=== PATIENT | male | born 1960 | race Caucasian/White ===

== ENCOUNTER 2017-08-21 06:56 | Inpatient (IN) | payer OTHER ==
[2017-08-21 09:33] LABS: ADD MAN DIFF? NO
[2017-08-21 09:37] LABS: BASOPHIL # 0.1 10^3/ul (0.0-0.1); BASOPHILS % 0.7 % (0.0-2.0); EOSINOPHILS # 0.3 10^3/ul (0.0-0.5); HEMATOCRIT 33.6 % (42.0-52.0); HEMOGLOBIN 11.1 g/dl (14.0-18.0); LYMPHOCYTES # 1.4 10^3/ul (0.8-2.9); LYMPHOCYTES % 15.5 % (15.0-51.0); MEAN CORPUSCULAR HEMOGLOBIN 26.1 pg (29.0-33.0); MEAN CORPUSCULAR VOLUME 79.1 fl (82.0-101.0); MEAN PLATELET VOLUME 11.2 fl (7.4-10.4); MONOCYTE # 0.6 10^3/ul (0.3-0.9); MONOCYTES % 6.3 % (0.0-11.0); NEUTROPHIL # 6.9 10^3/ul (1.6-7.5); NEUTROPHILS % 74.3 % (39.0-77.0); PLATELET COUNT 452 10^3/UL (140-415); RED BLOOD COUNT 4.25 10^6/ul (4.70-6.10); RED CELL DISTRIBUTION WIDTH 14.2 % (11.5-14.5)
[2017-08-21 09:37] LABS: WHITE BLOOD COUNT 9.2 10^3/ul (4.8-10.8)
[2017-08-21 10:07] LABS: ALANINE AMINOTRANSFERASE 31 IU/L (13-69); ALKALINE PHOSPHATASE 102 IU/L (42-121); ANION GAP 10 (8-16); ASPARTATE AMINO TRANSFERASE 16 IU/L (15-46); BILIRUBIN,INDIRECT 0.1 mg/dl (0-1.1); BILIRUBIN,TOTAL 0.1 mg/dl (0.2-1.3); BLOOD UREA NITROGEN 20 mg/dl (7-20); CARBON DIOXIDE 29 mmol/L (21-31); CHLORIDE 108 mmol/L (97-110); CREATININE 3.57 mg/dl (0.61-1.24); GLUCOSE 201 mg/dl (70-220); POTASSIUM 3.6 mmol/L (3.5-5.1); SODIUM 143 mmol/L (135-144); TOTAL PROTEIN 6.3 g/dl (6.1-8.1)
[2017-08-21 10:16] LABS: INR 0.88; PT RATIO 0.9
[2017-08-21 10:17] LABS: PARTIAL THROMBOPLASTIN TIME 30.6 Sec (25.0-35.0)
[2017-08-21] MEDS: PANTOPRAZOLE IV 80 MG in SOD CHLORIDE 0.9% 100 ML IV (10:38)
[2017-08-21] MEDS: PANTOPRAZOLE IV 80 MG in SOD CHLORIDE 0.9% 100 ML IVPB (10:38)
[2017-08-21] MEDS ORDERED: ONDANSETRON 4 MG INJ IV ×2 (11:30→12:00)
[2017-08-21] MEDS ORDERED: ACETAMINOPHEN 325 MG TAB PO ×2 (11:30→12:00)
[2017-08-21] MEDS: HYPOGLYCEMIA PROTOCOL when Glucose is <70 mg/dL or symptomatic <90 mg/dL. XX (12:00)
[2017-08-21] MEDS ORDERED: morphine 2 MG INJ IV (12:00)
[2017-08-21] MEDS ORDERED: BISACODYL (EC) 5 MG TAB PO (12:00)
[2017-08-21] MEDS: Discontinue current oral sulfonylureas (glyburide, glipizide, and/or glimepiride) prior to XX (12:00)
[2017-08-21] MEDS ORDERED: NACL 0.9% 3 ML SYG IV (12:00)
[2017-08-21] MEDS ORDERED: HYDROCODONE/APAP (5/325) TAB PO (12:00)
[2017-08-21] MEDS ORDERED: GLUCAGON 1 MG INJ IM (13:00)
[2017-08-21] MEDS ORDERED: GLUCOSE GEL 15 GRAM TUBE PO ×2 (13:00→13:01)
[2017-08-21] MEDS ORDERED: GLUCOSE GEL 15 GRAM TUBE BUCCAL (13:00)
[2017-08-21] MEDS ORDERED: DEXTROSE 50% 50 ML SYRINGE IV ×2 (13:00)
[2017-08-21 13:25] LABS: HEMOGLOBIN A1C 7.8 % (0-5.9)
[2017-08-21] MEDS: INSULIN ASPART [NOVOLOG] 3 ML PEN SC ×3 (13:29→21:00)
[2017-08-21] MEDS: CEFTRIAXONE 1 GM/50 ML (PMX) 50 ML IVPB (13:57)
[2017-08-21] MEDS: SOD CHLORIDE 0.9% 1,000 ML IV ×2 (13:57→14:00)
[2017-08-21] MEDS: OCTREOTIDE 1 MG in DEXTROSE 5% 95 ML IV (18:06)
[2017-08-21 18:23] LABS: HEMATOCRIT 31.4 % (42.0-52.0); HEMOGLOBIN 10.4 g/dl (14.0-18.0)
[2017-08-21] MEDS: hydrALAzine 20 MG INJ IV (20:47)
[2017-08-21] MEDS: INSULIN GLARGINE [LANtus] 3 ML PEN SC (22:12)
[2017-08-22 01:03] LABS: ADD UMIC YES; UR ASCORBIC ACID NEGATIVE (NEGATIVE); UR BACTERIA FEW /HPF (NONE SEEN); UR BILIRUBIN (Dip) NEGATIVE (NEGATIVE); UR BLOOD (Dip) NEGATIVE (NEGATIVE); UR CLARITY CLEAR (CLEAR); UR COLOR YELLOW (YELLOW); UR GLUCOSE (Dip) 3+ mg/dL (NEGATIVE); UR KETONES (Dip) TRACE mg/dL (NEGATIVE); UR LEUKOCYTE ESTERASE (Dip) NEGATIVE Leu/ul (NEGATIVE); UR NITRITE (Dip) NEGATIVE (NEGATIVE); UR RBC 3 /HPF (0-5); UR SPECIFIC GRAVITY (Dip) 1.014 (1.003-1.030); UR TOTAL PROTEIN (Dip) 3+ mg/dl (NEGATIVE); UR UROBILINOGEN (Dip) NEGATIVE (NEGATIVE); UR WBC 12 /HPF (0-5)
[2017-08-22] MEDS: SOD CHLORIDE 0.9% 1,000 ML IV ×2 (01:32→07:50)
[2017-08-22] MEDS: PANTOPRAZOLE IV 80 MG in SOD CHLORIDE 0.9% 100 ML IV ×3 (01:33→17:15)
[2017-08-22] MEDS: LORAZEPAM 2 MG INJ IV (01:33)
[2017-08-22] MEDS ORDERED: hydrALAzine 20 MG INJ (01:44)
[2017-08-22] MEDS: ACCU-CHEK XX (01:55)
[2017-08-22 02:30] LABS: SODIUM,URINE RANDOM 108 mmol/L (30-90)
[2017-08-22 02:30] LABS: CREATININE,URINE RANDOM 90.63 mg/dl (20-370)
[2017-08-22 07:30] LABS: ADD MAN DIFF? NO
[2017-08-22 07:32] LABS: WHITE BLOOD COUNT 7.4 10^3/ul (4.8-10.8)
[2017-08-22 07:32] LABS: BASOPHIL # 0.1 10^3/ul (0.0-0.1); BASOPHILS % 0.8 % (0.0-2.0); EOSINOPHILS # 0.4 10^3/ul (0.0-0.5); EOSINOPHILS % 4.7 % (0.0-7.0); HEMATOCRIT 35.1 % (42.0-52.0); HEMOGLOBIN 11.6 g/dl (14.0-18.0); LYMPHOCYTES # 1.5 10^3/ul (0.8-2.9); LYMPHOCYTES % 20.7 % (15.0-51.0); MEAN CORPUSCULAR HEMOGLOBIN 26.2 pg (29.0-33.0); MEAN CORPUSCULAR VOLUME 79.4 fl (82.0-101.0); MEAN PLATELET VOLUME 10.8 fl (7.4-10.4); MONOCYTE # 0.5 10^3/ul (0.3-0.9); MONOCYTES % 7.3 % (0.0-11.0); NEUTROPHIL # 4.9 10^3/ul (1.6-7.5); NEUTROPHILS % 66.2 % (39.0-77.0); PLATELET COUNT 464 10^3/UL (140-415); RED BLOOD COUNT 4.42 10^6/ul (4.70-6.10); RED CELL DISTRIBUTION WIDTH 14.4 % (11.5-14.5)
[2017-08-22 08:00] LABS: ALANINE AMINOTRANSFERASE 26 IU/L (13-69); ALBUMIN 3.2 g/dl (3.3-4.9); ALBUMIN/GLOBULIN RATIO 0.94; ALKALINE PHOSPHATASE 110 IU/L (42-121); ANION GAP 15 (8-16); ASPARTATE AMINO TRANSFERASE 26 IU/L (15-46); BILIRUBIN,INDIRECT 0.3 mg/dl (0-1.1); BILIRUBIN,TOTAL 0.3 mg/dl (0.2-1.3); BLOOD UREA NITROGEN 20 mg/dl (7-20); CALCIUM 8.4 mg/dl (8.4-10.2); CARBON DIOXIDE 23 mmol/L (21-31); CHLORIDE 111 mmol/L (97-110); CREATININE 3.63 mg/dl (0.61-1.24); GLUCOSE 201 mg/dl (70-220); MAGNESIUM 1.6 mg/dl (1.7-2.5); POTASSIUM 3.9 mmol/L (3.5-5.1); SODIUM 145 mmol/L (135-144); TOTAL PROTEIN 6.6 g/dl (6.1-8.1)
[2017-08-22] MEDS: INSULIN ASPART [NOVOLOG] 3 ML PEN SC ×4 (08:14→20:45)
[2017-08-22] MEDS: OCTREOTIDE 1 MG in DEXTROSE 5% 95 ML IV (08:45)
[2017-08-22] MEDS: INFLUENZA VIRUS VACCINE 0.5 ML (DISPENSING) IM* (08:51)
[2017-08-22] MEDS: SOD CHLORIDE 0.45% 1,000 ML IV ×2 (10:34→21:39)
[2017-08-22] MEDS: MAGNESIUM SULFATE 2 GM/50 ML 50 ML IVPB (10:34)
[2017-08-22] MEDS: CEFTRIAXONE 1 GM/50 ML (PMX) 50 ML IVPB (12:25)
[2017-08-22] MEDS: hydrALAzine 20 MG INJ IV ×2 (14:09→21:40)
[2017-08-22] MEDS ORDERED: ONDANSETRON 4 MG INJ IV (19:00)
[2017-08-22] MEDS: PROPOFOL 20 ML (19:02)
[2017-08-22] MEDS: FENTAnyl 50 MCG/ML VIAL (19:02)
[2017-08-22] MEDS: INSULIN GLARGINE [LANtus] 3 ML PEN SC (20:44)
[2017-08-23] MEDS: ACCU-CHEK XX (01:12)
[2017-08-23] MEDS: PANTOPRAZOLE (EC) 40 MG TAB PO ×2 (05:37→18:38)
[2017-08-23 05:44] LABS: ADD MAN DIFF? NO
[2017-08-23 05:48] LABS: WHITE BLOOD COUNT 7.4 10^3/ul (4.8-10.8)
[2017-08-23 05:48] LABS: BASOPHIL # 0.1 10^3/ul (0.0-0.1); BASOPHILS % 0.7 % (0.0-2.0); EOSINOPHILS # 0.6 10^3/ul (0.0-0.5); EOSINOPHILS % 7.7 % (0.0-7.0); HEMATOCRIT 28.8 % (42.0-52.0); HEMOGLOBIN 9.5 g/dl (14.0-18.0); LYMPHOCYTES # 1.7 10^3/ul (0.8-2.9); LYMPHOCYTES % 23.4 % (15.0-51.0); MEAN CORPUSCULAR HEMOGLOBIN 26.3 pg (29.0-33.0); MEAN CORPUSCULAR VOLUME 79.8 fl (82.0-101.0); MONOCYTE # 0.6 10^3/ul (0.3-0.9); MONOCYTES % 8.6 % (0.0-11.0); NEUTROPHIL # 4.4 10^3/ul (1.6-7.5); NEUTROPHILS % 59.3 % (39.0-77.0); PLATELET COUNT 393 10^3/UL (140-415); RED BLOOD COUNT 3.61 10^6/ul (4.70-6.10); RED CELL DISTRIBUTION WIDTH 14.6 % (11.5-14.5)
[2017-08-23 06:26] LABS: ANION GAP 9 (8-16); BLOOD UREA NITROGEN 20 mg/dl (7-20); CALCIUM 7.9 mg/dl (8.4-10.2); CARBON DIOXIDE 24 mmol/L (21-31); CHLORIDE 111 mmol/L (97-110); CREATININE 3.41 mg/dl (0.61-1.24); GLUCOSE 98 mg/dl (70-220); MAGNESIUM 2.1 mg/dl (1.7-2.5); PHOSPHORUS 3.8 mg/dl (2.5-4.9); POTASSIUM 3.3 mmol/L (3.5-5.1); SODIUM 141 mmol/L (135-144)
[2017-08-23] MEDS: INSULIN ASPART [NOVOLOG] 3 ML PEN SC ×3 (08:10→17:44)
[2017-08-23] MEDS: POTASSIUM CHLORIDE (SR) 20 MEQ TAB PO (09:15)
[2017-08-23] MEDS: hydrALAzine 20 MG INJ IV (11:13)
[2017-08-23] MEDS: CEFTRIAXONE 1 GM/50 ML (PMX) 50 ML IVPB (12:38)
[2017-08-23 16:22] LABS: CREATININE, RANDOM URINE 112 mg/dL (20-370); MICROALBUMIN >600.0 mg/dL
== END 2017-08-23 20:00 | disposition home or self-care (01) | DRG 391 ==
LOC: TEL 08-22 13:25 → E/R 06:56 → MS2 08-22 23:40 → PP2 11:22 → TEL 14:32
PROVIDERS: Internal Medicine
PROC: 0DB68ZX Excision of Stomach, Via Natural or Artificial Opening Endoscopic, Diagnostic (ICD-10-PCS; principal; 2017-08-22 18:45)
PROC: 0DB78ZX Excision of Stomach, Pylorus, Via Natural or Artificial Opening Endoscopic, Diagnostic (ICD-10-PCS; 2017-08-22 18:45)
DX: K29.70 Gastritis, unspecified, without bleeding (principal); G93.40 Encephalopathy, unspecified; N17.9 Acute kidney failure, unspecified; N18.4 Chronic kidney disease, stage 4 (severe); E11.22 Type 2 diabetes mellitus with diabetic chronic kidney disease; K92.2 Gastrointestinal hemorrhage, unspecified; E87.1 Hypo-osmolality and hyponatremia; I12.9 Hypertensive chronic kidney disease with stage 1 through stage 4 chronic kidney disease, or unspecified chronic kidney disease; D64.9 Anemia, unspecified; K20.9 Esophagitis, unspecified; K44.9 Diaphragmatic hernia without obstruction or gangrene; E87.5 Hyperkalemia
CPT/HCPCS: 36415; 71045; 80048; 80053; 81001; 81003; 82043; 82962; 83036; 83735; 84100; 84155; 84300; 85014; 85018; 85025; 85610; 85730; 86850; 86900; 86901; 88305; 88312; 90686; 96374; 99285-25

== ENCOUNTER 2017-09-13 06:16 | Observation (INO) | payer OTHER ==
[2017-09-13] MEDS: SOD CHLORIDE 0.9% 500 ML IV (06:52)
[2017-09-13] MEDS: ONDANSETRON 4 MG INJ IV (06:54)
[2017-09-13] MEDS: DIPHTH/TET/ACEL PERTUSS (ADULT) 0.5 ML VIAL IM* (06:55)
[2017-09-13 06:59] LABS: ADD MAN DIFF? NO
[2017-09-13 07:04] LABS: BASOPHIL # 0.1 10^3/ul (0.0-0.1); BASOPHILS % 0.7 % (0.0-2.0); EOSINOPHILS # 0.4 10^3/ul (0.0-0.5); HEMATOCRIT 33.1 % (42.0-52.0); HEMOGLOBIN 11.1 g/dl (14.0-18.0); LYMPHOCYTES # 1.6 10^3/ul (0.8-2.9); LYMPHOCYTES % 20.5 % (15.0-51.0); MEAN CORPUSCULAR HEMOGLOBIN 26.2 pg (29.0-33.0); MEAN CORPUSCULAR HGB CONC 33.5 g/dl (32.0-37.0); MEAN CORPUSCULAR VOLUME 78.3 fl (82.0-101.0); MEAN PLATELET VOLUME 11.3 fl (7.4-10.4); MONOCYTE # 0.6 10^3/ul (0.3-0.9); MONOCYTES % 7.5 % (0.0-11.0); NEUTROPHIL # 5.1 10^3/ul (1.6-7.5); NEUTROPHILS % 65.9 % (39.0-77.0); PLATELET COUNT 380 10^3/UL (140-415); RED BLOOD COUNT 4.23 10^6/ul (4.70-6.10); RED CELL DISTRIBUTION WIDTH 14.2 % (11.5-14.5)
[2017-09-13 07:04] LABS: WHITE BLOOD COUNT 7.7 10^3/ul (4.8-10.8)
[2017-09-13 07:20] LABS: INR 0.86; PROTIME 11.8 Sec (11.9-14.9); PT RATIO 0.9
[2017-09-13 07:21] LABS: PARTIAL THROMBOPLASTIN TIME 30.1 Sec (25.0-35.0)
[2017-09-13 07:25] LABS: ANION GAP 12 (8-16); BLOOD UREA NITROGEN 32 mg/dl (7-20); CALCIUM 8.3 mg/dl (8.4-10.2); CARBON DIOXIDE 25 mmol/L (21-31); CHLORIDE 112 mmol/L (97-110); CREATININE 4.02 mg/dl (0.61-1.24); GLUCOSE 283 mg/dl (70-220); POTASSIUM 4.3 mmol/L (3.5-5.1); SODIUM 145 mmol/L (135-144)
[2017-09-13] MEDS: ASPIRIN 300 MG SUPP PR (12:00)
[2017-09-13] MEDS ORDERED: ONDANSETRON 4 MG INJ IV (13:00)
[2017-09-13] MEDS ORDERED: ACETAMINOPHEN 325 MG TAB PO (13:00)
[2017-09-13] MEDS: ASPIRIN 325 MG TAB PO (13:36)
[2017-09-13] MEDS ORDERED: GLUCOSE GEL 15 GRAM TUBE BUCCAL (15:00)
[2017-09-13] MEDS ORDERED: GLUCAGON 1 MG INJ IM (15:00)
[2017-09-13] MEDS ORDERED: GLUCOSE GEL 15 GRAM TUBE PO ×2 (15:00)
[2017-09-13] MEDS ORDERED: DEXTROSE 50% 50 ML SYRINGE IV ×2 (15:00)
[2017-09-13] MEDS: AMLODIPINE 5 MG TAB PO (17:01)
[2017-09-13] MEDS: METOPROLOL 25 MG TAB PO ×2 (17:02→21:09)
[2017-09-13] MEDS: INSULIN ASPART [NOVOLOG] 3 ML PEN SC ×3 (17:48→21:00)
[2017-09-13] MEDS: INSULIN GLARGINE [LANtus] 3 ML PEN SC (21:36)
[2017-09-14 01:26] LABS: ADD UMIC YES; UR ASCORBIC ACID 20 mg/dL (NEGATIVE); UR BILIRUBIN (Dip) NEGATIVE (NEGATIVE); UR BLOOD (Dip) NEGATIVE (NEGATIVE); UR CLARITY CLEAR (CLEAR); UR COLOR YELLOW (YELLOW); UR GLUCOSE (Dip) 3+ mg/dL (NEGATIVE); UR KETONES (Dip) NEGATIVE (NEGATIVE); UR LEUKOCYTE ESTERASE (Dip) NEGATIVE Leu/ul (NEGATIVE); UR NITRITE (Dip) NEGATIVE (NEGATIVE); UR RBC 4 /HPF (0-5); UR SPECIFIC GRAVITY (Dip) 1.015 (1.003-1.030); UR TOTAL PROTEIN (Dip) 3+ mg/dl (NEGATIVE); UR UROBILINOGEN (Dip) NEGATIVE (NEGATIVE); UR WBC 9 /HPF (0-5)
[2017-09-14] MEDS: ACCU-CHEK XX (02:15)
[2017-09-14] MEDS: PANTOPRAZOLE (EC) 40 MG TAB PO (06:07)
[2017-09-14 06:37] LABS: ADD MAN DIFF? NO
[2017-09-14 06:45] LABS: WHITE BLOOD COUNT 7.5 10^3/ul (4.8-10.8)
[2017-09-14 06:45] LABS: BASOPHIL # 0.1 10^3/ul (0.0-0.1); BASOPHILS % 0.7 % (0.0-2.0); EOSINOPHILS # 0.4 10^3/ul (0.0-0.5); EOSINOPHILS % 5.1 % (0.0-7.0); HEMOGLOBIN 9.5 g/dl (14.0-18.0); LYMPHOCYTES # 1.8 10^3/ul (0.8-2.9); LYMPHOCYTES % 24.3 % (15.0-51.0); MEAN CORPUSCULAR HEMOGLOBIN 26.5 pg (29.0-33.0); MEAN CORPUSCULAR HGB CONC 33.9 g/dl (32.0-37.0); MEAN PLATELET VOLUME 11.3 fl (7.4-10.4); MONOCYTE # 0.7 10^3/ul (0.3-0.9); MONOCYTES % 8.7 % (0.0-11.0); NEUTROPHIL # 4.6 10^3/ul (1.6-7.5); NEUTROPHILS % 60.9 % (39.0-77.0); PLATELET COUNT 330 10^3/UL (140-415); RED BLOOD COUNT 3.59 10^6/ul (4.70-6.10)
[2017-09-14 06:59] LABS: INR 0.96; PARTIAL THROMBOPLASTIN TIME 30.7 Sec (25.0-35.0); PROTIME 12.9 Sec (11.9-14.9)
[2017-09-14 07:06] LABS: IRON 30 ug/dl (35-150)
[2017-09-14 07:11] LABS: ALANINE AMINOTRANSFERASE 25 IU/L (13-69); ALBUMIN 2.4 g/dl (3.3-4.9); ALKALINE PHOSPHATASE 73 IU/L (42-121); ANION GAP 10 (8-16); ASPARTATE AMINO TRANSFERASE 17 IU/L (15-46); BILIRUBIN,INDIRECT 0.1 mg/dl (0-1.1); BILIRUBIN,TOTAL 0.1 mg/dl (0.2-1.3); BLOOD UREA NITROGEN 28 mg/dl (7-20); CALCIUM 7.8 mg/dl (8.4-10.2); CARBON DIOXIDE 23 mmol/L (21-31); CHLORIDE 113 mmol/L (97-110); CHOL/HDL RATIO 7.8 RATIO; CHOLESTEROL 289 mg/dl (100-200); CREATININE 3.58 mg/dl (0.61-1.24); GLUCOSE 87 mg/dl (70-220); HDL CHOLESTEROL 37 mg/dl (28-71); LDL CHOLESTEROL,CALCULATED 225 mg/dl; MAGNESIUM 1.3 mg/dl (1.7-2.5); PHOSPHORUS 4.9 mg/dl (2.5-4.9); POTASSIUM 3.4 mmol/L (3.5-5.1); SODIUM 143 mmol/L (135-144); TOTAL PROTEIN 5.5 g/dl (6.1-8.1); TRIGLYCERIDES 133 mg/dl (0-149)
[2017-09-14 07:16] LABS: % IRON SATURATION 14 % SAT (22-52); TOTAL IRON BINDING CAPACITY 211 ug/dl (241-421)
[2017-09-14] MEDS: INSULIN ASPART [NOVOLOG] 3 ML PEN SC ×7 (08:00→21:00)
[2017-09-14] MEDS: POTASSIUM CHLORIDE (SR) 20 MEQ TAB PO (09:11)
[2017-09-14] MEDS: METOPROLOL 25 MG TAB PO ×2 (09:11→21:03)
[2017-09-14] MEDS: ASPIRIN (EC) 81 MG TAB PO (09:11)
[2017-09-14] MEDS: AMLODIPINE 5 MG TAB PO (09:20)
[2017-09-14 09:53] LABS: HEMOGLOBIN A1C 7.7 % (0-5.9)
[2017-09-14] MEDS: SOD FERRIC GLUC COMPLX 125 MG in SOD CHLORIDE 0.9% 100 ML IVPB (11:35)
[2017-09-14] MEDS: MAGNESIUM SULFATE 4 GM/100 ML 100 ML IVPB (17:10)
[2017-09-14] MEDS: INSULIN GLARGINE [LANtus] 3 ML PEN SC (21:03)
[2017-09-15] MEDS: ACCU-CHEK XX (01:35)
[2017-09-15] MEDS: PANTOPRAZOLE (EC) 40 MG TAB PO (06:17)
[2017-09-15 06:19] LABS: ADD MAN DIFF? NO
[2017-09-15 06:37] LABS: WHITE BLOOD COUNT 7.7 10^3/ul (4.8-10.8)
[2017-09-15 06:37] LABS: BASOPHILS % 0.5 % (0.0-2.0); EOSINOPHILS # 0.4 10^3/ul (0.0-0.5); EOSINOPHILS % 5.6 % (0.0-7.0); HEMATOCRIT 28.8 % (42.0-52.0); HEMOGLOBIN 9.9 g/dl (14.0-18.0); LYMPHOCYTES # 1.4 10^3/ul (0.8-2.9); LYMPHOCYTES % 18.7 % (15.0-51.0); MEAN CORPUSCULAR HEMOGLOBIN 26.8 pg (29.0-33.0); MEAN CORPUSCULAR HGB CONC 34.4 g/dl (32.0-37.0); MEAN CORPUSCULAR VOLUME 77.8 fl (82.0-101.0); MEAN PLATELET VOLUME 11.3 fl (7.4-10.4); MONOCYTE # 0.7 10^3/ul (0.3-0.9); MONOCYTES % 8.9 % (0.0-11.0); NEUTROPHIL # 5.1 10^3/ul (1.6-7.5); PLATELET COUNT 347 10^3/UL (140-415); RED CELL DISTRIBUTION WIDTH 13.9 % (11.5-14.5)
[2017-09-15 07:28] LABS: ANION GAP 9 (8-16); BLOOD UREA NITROGEN 33 mg/dl (7-20); CARBON DIOXIDE 23 mmol/L (21-31); CHLORIDE 110 mmol/L (97-110); CREATININE 4.03 mg/dl (0.61-1.24); GLUCOSE 116 mg/dl (70-220); POTASSIUM 4.3 mmol/L (3.5-5.1); SODIUM 138 mmol/L (135-144)
[2017-09-15] MEDS: INSULIN ASPART [NOVOLOG] 3 ML PEN SC ×7 (07:55→20:40)
[2017-09-15] MEDS: AMLODIPINE 5 MG TAB PO (08:40)
[2017-09-15] MEDS: ASPIRIN (EC) 81 MG TAB PO (08:40)
[2017-09-15] MEDS: METOPROLOL 25 MG TAB PO ×2 (08:40→20:35)
[2017-09-15] MEDS: SOD FERRIC GLUC COMPLX 125 MG in SOD CHLORIDE 0.9% 100 ML IVPB (10:05)
[2017-09-15] MEDS: INSULIN GLARGINE [LANtus] 3 ML PEN SC (20:43)
== END 2017-09-15 20:45 | disposition home health service (06) ==
LOC: E/R 06:16 → PP2 15:23
DX: S00.01XA Abrasion of scalp, initial encounter (principal); I12.9 Hypertensive chronic kidney disease with stage 1 through stage 4 chronic kidney disease, or unspecified chronic kidney disease; E11.22 Type 2 diabetes mellitus with diabetic chronic kidney disease; N18.4 Chronic kidney disease, stage 4 (severe); Z86.73 Personal history of transient ischemic attack (TIA), and cerebral infarction without residual deficits; N17.9 Acute kidney failure, unspecified; D50.9 Iron deficiency anemia, unspecified; M89.9 Disorder of bone, unspecified; E87.1 Hypo-osmolality and hyponatremia; E87.6 Hypokalemia; Z87.891 Personal history of nicotine dependence; E78.5 Hyperlipidemia, unspecified; F03.90 Unspecified dementia, unspecified severity, without behavioral disturbance, psychotic disturbance, mood disturbance, and anxiety; R51 Headache; W06.XXXA Fall from bed, initial encounter
CPT/HCPCS: 36415; 70450; 70551; 71045; 80048; 80061; 80076; 81001; 82962; 83036; 83540; 83735; 84100; 84443; 85025; 85610; 85730; 90471; 90715; 92507; 92523; 92526; 92610; 93005; 96372; 96374; 97162; 99285-25; G0378

== ENCOUNTER 2017-09-24 01:55 | Inpatient (IN) | payer OTHER ==
[2017-09-24] MEDS: FUROSEMIDE 40 MG INJ IV (03:30)
[2017-09-24 03:32] LABS: ADD MAN DIFF? NO
[2017-09-24 03:48] LABS: PROTIME 12.2 Sec (11.9-14.9)
[2017-09-24 04:06] LABS: AMMONIA < 9 umol/l (9-30)
[2017-09-24 04:20] LABS: ALANINE AMINOTRANSFERASE 29 IU/L (13-69); ALBUMIN 2.9 g/dl (3.3-4.9); ALBUMIN/GLOBULIN RATIO 0.93; ALKALINE PHOSPHATASE 93 IU/L (42-121); ANION GAP 17 (8-16); ASPARTATE AMINO TRANSFERASE 15 IU/L (15-46); BLOOD UREA NITROGEN 38 mg/dl (7-20); CALCIUM 8.2 mg/dl (8.4-10.2); CARBON DIOXIDE 21 mmol/L (21-31); CHLORIDE 115 mmol/L (97-110); CREATININE 4.43 mg/dl (0.61-1.24); GLUCOSE 117 mg/dl (70-220); LIPASE 99 U/L (23-300); POTASSIUM 4.8 mmol/L (3.5-5.1); SODIUM 148 mmol/L (135-144)
[2017-09-24 04:23] LABS: BASOPHIL # 0.1 10^3/ul (0.0-0.1); BASOPHILS % 0.5 % (0.0-2.0); EOSINOPHILS # 0.4 10^3/ul (0.0-0.5); EOSINOPHILS % 4.5 % (0.0-7.0); HEMATOCRIT 27.8 % (42.0-52.0); HEMOGLOBIN 9.3 g/dl (14.0-18.0); LYMPHOCYTES # 1.6 10^3/ul (0.8-2.9); MEAN CORPUSCULAR HEMOGLOBIN 26.6 pg (29.0-33.0); MEAN CORPUSCULAR HGB CONC 33.5 g/dl (32.0-37.0); MEAN CORPUSCULAR VOLUME 79.4 fl (82.0-101.0); MEAN PLATELET VOLUME 11.3 fl (7.4-10.4); MONOCYTE # 0.8 10^3/ul (0.3-0.9); MONOCYTES % 8.4 % (0.0-11.0); NEUTROPHIL # 6.3 10^3/ul (1.6-7.5); NEUTROPHILS % 69.3 % (39.0-77.0); PLATELET COUNT 394 10^3/UL (140-415); RED CELL DISTRIBUTION WIDTH 14.4 % (11.5-14.5)
[2017-09-24 04:23] LABS: WHITE BLOOD COUNT 9.1 10^3/ul (4.8-10.8)
[2017-09-24 04:32] LABS: B-TYPE NATRIURETIC PEPTIDE 13300 PG/ML (0-125); TROPONIN-I 0.016 ng/ml (0.00-0.12)
[2017-09-24] MEDS ORDERED: hydrALAzine 20 MG INJ IV (05:00)
[2017-09-24] MEDS ORDERED: HYDROCODONE/APAP (10/325) TAB PO (05:00)
[2017-09-24] MEDS ORDERED: NACL 0.9% 3 ML SYG IV (05:00)
[2017-09-24] MEDS ORDERED: ACETAMINOPHEN 325 MG TAB PO (05:00)
[2017-09-24] MEDS ORDERED: morphine 2 MG INJ IV (05:00)
[2017-09-24 09:16] LABS: ADD MAN DIFF? NO
[2017-09-24 09:17] LABS: WHITE BLOOD COUNT 7.7 10^3/ul (4.8-10.8)
[2017-09-24 09:17] LABS: BASOPHIL # 0.1 10^3/ul (0.0-0.1); BASOPHILS % 0.8 % (0.0-2.0); EOSINOPHILS # 0.4 10^3/ul (0.0-0.5); EOSINOPHILS % 4.5 % (0.0-7.0); HEMATOCRIT 26.7 % (42.0-52.0); HEMOGLOBIN 8.9 g/dl (14.0-18.0); LYMPHOCYTES # 1.7 10^3/ul (0.8-2.9); LYMPHOCYTES % 22.4 % (15.0-51.0); MEAN CORPUSCULAR HEMOGLOBIN 26.3 pg (29.0-33.0); MEAN CORPUSCULAR HGB CONC 33.3 g/dl (32.0-37.0); MEAN CORPUSCULAR VOLUME 78.8 fl (82.0-101.0); MEAN PLATELET VOLUME 11.1 fl (7.4-10.4); MONOCYTE # 0.7 10^3/ul (0.3-0.9); MONOCYTES % 8.5 % (0.0-11.0); NEUTROPHIL # 4.9 10^3/ul (1.6-7.5); NEUTROPHILS % 63.4 % (39.0-77.0); PLATELET COUNT 368 10^3/UL (140-415); RED BLOOD COUNT 3.39 10^6/ul (4.70-6.10); RED CELL DISTRIBUTION WIDTH 14.5 % (11.5-14.5)
[2017-09-24 09:36] LABS: ALANINE AMINOTRANSFERASE 29 IU/L (13-69); ALBUMIN 2.8 g/dl (3.3-4.9); ALBUMIN/GLOBULIN RATIO 0.82; ALKALINE PHOSPHATASE 81 IU/L (42-121); ANION GAP 16 (8-16); ASPARTATE AMINO TRANSFERASE 16 IU/L (15-46); BLOOD UREA NITROGEN 35 mg/dl (7-20); CALCIUM 8.2 mg/dl (8.4-10.2); CARBON DIOXIDE 21 mmol/L (21-31); CHLORIDE 114 mmol/L (97-110); CREATININE 4.65 mg/dl (0.61-1.24); GLUCOSE 103 mg/dl (70-220); POTASSIUM 4.5 mmol/L (3.5-5.1); SODIUM 146 mmol/L (135-144); TOTAL PROTEIN 6.2 g/dl (6.1-8.1)
[2017-09-24] MEDS: PANTOPRAZOLE (EC) 40 MG TAB PO (11:10)
[2017-09-24] MEDS: FERROUS SULFATE (EC) 325 MG TAB PO ×2 (11:10→20:19)
[2017-09-24] MEDS: ASPIRIN (EC) 81 MG TAB PO (11:11)
[2017-09-24] MEDS: HEPARIN 5,000 UNIT/0.5 ML VIAL SC ×2 (11:11→20:29)
[2017-09-24] MEDS: AMLODIPINE 5 MG TAB PO ×2 (12:39→20:19)
[2017-09-24] MEDS: METOPROLOL 25 MG TAB PO ×2 (12:40→20:19)
[2017-09-24] MEDS: LIDOCAINE 1% (MPF) 5 ML VIAL (14:53)
[2017-09-24] MEDS: BUMETANIDE 3 MG in DEXTROSE 5% 18 ML IV (15:16)
[2017-09-24 15:32] LABS: FLD MN% 85.4 %; FLD PMN% 14.6 %; FLD RBC 1000 /uL; FLD WBC 89 /cmm
[2017-09-24 15:49] LABS: FLD CLARITY SLIGHTLY CLOUDY; FLD COLOR YELLOW
[2017-09-24 15:49] LABS: FLD TYPE THORACENTHESIS
[2017-09-24 16:06] LABS: FLUID LD 136 U/L; FLUID TOTAL PROTEIN < 2.0 g/dl; FLUID TYPE THORACENTESIS FLUID
[2017-09-24 16:45] LABS: SODIUM,URINE RANDOM 128 mmol/L (30-90)
[2017-09-24 16:45] LABS: CREATININE,URINE RANDOM 38.49 mg/dl (20-370)
[2017-09-24] MEDS ORDERED: DEXTROSE 50% 50 ML SYRINGE IV ×2 (19:00)
[2017-09-24] MEDS ORDERED: GLUCOSE GEL 15 GRAM TUBE BUCCAL (19:00)
[2017-09-24] MEDS ORDERED: GLUCAGON 1 MG INJ IM (19:00)
[2017-09-24] MEDS ORDERED: GLUCOSE GEL 15 GRAM TUBE PO ×2 (19:00)
[2017-09-24 19:19] LABS: HEMOGLOBIN A1C 7.9 % (0-5.9)
[2017-09-24 19:20] LABS: LACTATE DEHYDROGENASE 529 IU/L (313-618)
[2017-09-24] MEDS: INSULIN ASPART [NOVOLOG] 3 ML PEN SC (20:18)
[2017-09-24] MEDS: ATORVASTATIN 20 MG TAB PO (20:19)
[2017-09-25] MEDS: ACCU-CHEK XX (02:00)
[2017-09-25] MEDS: PANTOPRAZOLE (EC) 40 MG TAB PO (05:45)
[2017-09-25 07:09] LABS: WHITE BLOOD COUNT 7.4 10^3/ul (4.8-10.8)
[2017-09-25 07:09] LABS: ADD MAN DIFF? NO; BASOPHIL # 0.1 10^3/ul (0.0-0.1); BASOPHILS % 0.7 % (0.0-2.0); EOSINOPHILS # 0.4 10^3/ul (0.0-0.5); EOSINOPHILS % 5.9 % (0.0-7.0); HEMOGLOBIN 8.6 g/dl (14.0-18.0); LYMPHOCYTES # 1.6 10^3/ul (0.8-2.9); LYMPHOCYTES % 21.9 % (15.0-51.0); MEAN CORPUSCULAR HEMOGLOBIN 26.3 pg (29.0-33.0); MEAN CORPUSCULAR HGB CONC 33.1 g/dl (32.0-37.0); MEAN CORPUSCULAR VOLUME 79.5 fl (82.0-101.0); MEAN PLATELET VOLUME 11.4 fl (7.4-10.4); MONOCYTE # 0.6 10^3/ul (0.3-0.9); MONOCYTES % 8.3 % (0.0-11.0); NEUTROPHIL # 4.7 10^3/ul (1.6-7.5); NEUTROPHILS % 62.9 % (39.0-77.0); PLATELET COUNT 366 10^3/UL (140-415); RED BLOOD COUNT 3.27 10^6/ul (4.70-6.10); RED CELL DISTRIBUTION WIDTH 14.5 % (11.5-14.5)
[2017-09-25 07:26] LABS: ALANINE AMINOTRANSFERASE 27 IU/L (13-69); ALBUMIN 2.6 g/dl (3.3-4.9); ALBUMIN/GLOBULIN RATIO 0.78; ALKALINE PHOSPHATASE 80 IU/L (42-121); ANION GAP 15 (8-16); ASPARTATE AMINO TRANSFERASE 12 IU/L (15-46); BLOOD UREA NITROGEN 41 mg/dl (7-20); CARBON DIOXIDE 22 mmol/L (21-31); CHLORIDE 110 mmol/L (97-110); CREATININE 4.66 mg/dl (0.61-1.24); GLUCOSE 123 mg/dl (70-220); MAGNESIUM 1.5 mg/dl (1.7-2.5); PHOSPHORUS 4.7 mg/dl (2.5-4.9); POTASSIUM 4.6 mmol/L (3.5-5.1); SODIUM 142 mmol/L (135-144); TOTAL PROTEIN 5.9 g/dl (6.1-8.1)
[2017-09-25] MEDS: INSULIN ASPART [NOVOLOG] 3 ML PEN SC ×4 (07:55→20:58)
[2017-09-25] MEDS: FERROUS SULFATE (EC) 325 MG TAB PO ×2 (08:45→20:55)
[2017-09-25] MEDS: AMLODIPINE 5 MG TAB PO ×2 (08:45→21:05)
[2017-09-25] MEDS: ASPIRIN (EC) 81 MG TAB PO (08:46)
[2017-09-25] MEDS: METOPROLOL 25 MG TAB PO ×2 (08:46→20:54)
[2017-09-25] MEDS: HEPARIN 5,000 UNIT/0.5 ML VIAL SC ×2 (08:49→20:58)
[2017-09-25 11:00] LABS: COMPLEMENT C3 105 mg/dl (88-165); COMPLEMENT C4 41 mg/dl (14-44)
[2017-09-25 19:06] LABS: ADD UMIC YES; UR ASCORBIC ACID NEGATIVE (NEGATIVE); UR BILIRUBIN (Dip) NEGATIVE (NEGATIVE); UR BLOOD (Dip) NEGATIVE (NEGATIVE); UR CLARITY CLEAR (CLEAR); UR COLOR YELLOW (YELLOW); UR GLUCOSE (Dip) 3+ mg/dL (NEGATIVE); UR KETONES (Dip) NEGATIVE (NEGATIVE); UR LEUKOCYTE ESTERASE (Dip) NEGATIVE Leu/ul (NEGATIVE); UR NITRITE (Dip) NEGATIVE (NEGATIVE); UR RBC 1 /HPF (0-5); UR SPECIFIC GRAVITY (Dip) 1.013 (1.003-1.030); UR TOTAL PROTEIN (Dip) 3+ mg/dl (NEGATIVE); UR UROBILINOGEN (Dip) NEGATIVE (NEGATIVE); UR WBC 14 /HPF (0-5)
[2017-09-25] MEDS: ATORVASTATIN 20 MG TAB PO (20:54)
[2017-09-26] MEDS: ACCU-CHEK XX (02:29)
[2017-09-26] MEDS: INSULIN ASPART [NOVOLOG] 3 ML PEN SC ×5 (02:50→20:43)
[2017-09-26] MEDS: PANTOPRAZOLE (EC) 40 MG TAB PO (05:33)
[2017-09-26 06:04] LABS: ADD MAN DIFF? NO
[2017-09-26 06:06] LABS: BASOPHILS % 0.5 % (0.0-2.0); EOSINOPHILS # 0.4 10^3/ul (0.0-0.5); EOSINOPHILS % 5.9 % (0.0-7.0); HEMOGLOBIN 8.7 g/dl (14.0-18.0); LYMPHOCYTES # 1.9 10^3/ul (0.8-2.9); MEAN CORPUSCULAR HEMOGLOBIN 26.2 pg (29.0-33.0); MEAN CORPUSCULAR HGB CONC 33.5 g/dl (32.0-37.0); MEAN CORPUSCULAR VOLUME 78.3 fl (82.0-101.0); MEAN PLATELET VOLUME 10.8 fl (7.4-10.4); MONOCYTE # 0.7 10^3/ul (0.3-0.9); MONOCYTES % 8.7 % (0.0-11.0); NEUTROPHIL # 4.4 10^3/ul (1.6-7.5); NEUTROPHILS % 59.6 % (39.0-77.0); PLATELET COUNT 386 10^3/UL (140-415); RED BLOOD COUNT 3.32 10^6/ul (4.70-6.10); RED CELL DISTRIBUTION WIDTH 14.2 % (11.5-14.5)
[2017-09-26 06:06] LABS: WHITE BLOOD COUNT 7.5 10^3/ul (4.8-10.8)
[2017-09-26 07:19] LABS: ANION GAP 14 (8-16); BLOOD UREA NITROGEN 46 mg/dl (7-20); CALCIUM 7.9 mg/dl (8.4-10.2); CARBON DIOXIDE 23 mmol/L (21-31); CHLORIDE 111 mmol/L (97-110); CREATININE 5.19 mg/dl (0.61-1.24); GLUCOSE 118 mg/dl (70-220); MAGNESIUM 1.6 mg/dl (1.7-2.5); PHOSPHORUS 4.7 mg/dl (2.5-4.9); POTASSIUM 4.8 mmol/L (3.5-5.1); SODIUM 143 mmol/L (135-144)
[2017-09-26] MEDS: FERROUS SULFATE (EC) 325 MG TAB PO ×2 (09:14→20:35)
[2017-09-26] MEDS: ASPIRIN (EC) 81 MG TAB PO (09:15)
[2017-09-26] MEDS: AMLODIPINE 5 MG TAB PO ×2 (09:16→20:36)
[2017-09-26] MEDS: METOPROLOL 25 MG TAB PO ×2 (09:16→20:35)
[2017-09-26] MEDS: HEPARIN 5,000 UNIT/0.5 ML VIAL SC ×2 (09:48→20:43)
[2017-09-26] MEDS: MAGNESIUM SULFATE 2 GM/50 ML 50 ML IVPB (10:16)
[2017-09-26] MEDS: ATORVASTATIN 20 MG TAB PO (20:34)
[2017-09-27] MEDS: ACCU-CHEK XX (02:21)
[2017-09-27] MEDS: PANTOPRAZOLE (EC) 40 MG TAB PO (05:54)
[2017-09-27] MEDS: INSULIN ASPART [NOVOLOG] 3 ML PEN SC ×4 (07:55→20:52)
[2017-09-27 08:03] LABS: ADD MAN DIFF? NO
[2017-09-27 08:09] LABS: BASOPHILS % 0.4 % (0.0-2.0); EOSINOPHILS # 0.4 10^3/ul (0.0-0.5); HEMATOCRIT 29.3 % (42.0-52.0); HEMOGLOBIN 9.6 g/dl (14.0-18.0); LYMPHOCYTES # 1.4 10^3/ul (0.8-2.9); MEAN CORPUSCULAR HEMOGLOBIN 26.2 pg (29.0-33.0); MEAN CORPUSCULAR HGB CONC 32.8 g/dl (32.0-37.0); MEAN CORPUSCULAR VOLUME 79.8 fl (82.0-101.0); MEAN PLATELET VOLUME 11.3 fl (7.4-10.4); MONOCYTE # 0.8 10^3/ul (0.3-0.9); MONOCYTES % 9.7 % (0.0-11.0); NEUTROPHIL # 5.3 10^3/ul (1.6-7.5); NEUTROPHILS % 66.6 % (39.0-77.0); PLATELET COUNT 398 10^3/UL (140-415); RED BLOOD COUNT 3.67 10^6/ul (4.70-6.10); RED CELL DISTRIBUTION WIDTH 14.1 % (11.5-14.5)
[2017-09-27 08:09] LABS: WHITE BLOOD COUNT 7.9 10^3/ul (4.8-10.8)
[2017-09-27 08:32] LABS: ANION GAP 15 (8-16); BLOOD UREA NITROGEN 52 mg/dl (7-20); CALCIUM 8.4 mg/dl (8.4-10.2); CARBON DIOXIDE 16 mmol/L (21-31); CHLORIDE 115 mmol/L (97-110); CREATININE 5.29 mg/dl (0.61-1.24); GLUCOSE 147 mg/dl (70-220); MAGNESIUM 1.9 mg/dl (1.7-2.5); PHOSPHORUS 3.7 mg/dl (2.5-4.9); POTASSIUM 4.9 mmol/L (3.5-5.1); SODIUM 141 mmol/L (135-144)
[2017-09-27] MEDS: METOPROLOL 25 MG TAB PO ×2 (08:33→20:51)
[2017-09-27] MEDS: ASPIRIN (EC) 81 MG TAB PO (08:33)
[2017-09-27] MEDS: FERROUS SULFATE (EC) 325 MG TAB PO ×2 (08:33→20:51)
[2017-09-27] MEDS: AMLODIPINE 5 MG TAB PO ×2 (08:34→20:52)
[2017-09-27] MEDS: HEPARIN 5,000 UNIT/0.5 ML VIAL SC ×2 (09:04→21:00)
[2017-09-27] MEDS: BUMETANIDE 1 MG TAB PO ×2 (12:18→20:50)
[2017-09-27] MEDS: ATORVASTATIN 20 MG TAB PO (20:51)
[2017-09-28] MEDS: ACCU-CHEK XX (02:00)
[2017-09-28] MEDS: PANTOPRAZOLE (EC) 40 MG TAB PO (05:52)
[2017-09-28] MEDS: BUMETANIDE 1 MG TAB PO ×2 (05:52→18:19)
[2017-09-28] MEDS: INSULIN ASPART [NOVOLOG] 3 ML PEN SC ×4 (07:55→21:00)
[2017-09-28] MEDS: FERROUS SULFATE (EC) 325 MG TAB PO ×2 (09:17→21:29)
[2017-09-28] MEDS: ASPIRIN (EC) 81 MG TAB PO (09:17)
[2017-09-28] MEDS: AMLODIPINE 5 MG TAB PO ×2 (09:18→21:30)
[2017-09-28] MEDS: METOPROLOL 25 MG TAB PO ×2 (09:19→21:00)
[2017-09-28 09:24] LABS: ANION GAP 15 (8-16); BLOOD UREA NITROGEN 49 mg/dl (7-20); CALCIUM 8.6 mg/dl (8.4-10.2); CARBON DIOXIDE 20 mmol/L (21-31); CHLORIDE 113 mmol/L (97-110); CREATININE 5.15 mg/dl (0.61-1.24); GLUCOSE 118 mg/dl (70-220); MAGNESIUM 1.8 mg/dl (1.7-2.5); PHOSPHORUS 3.3 mg/dl (2.5-4.9); POTASSIUM 4.5 mmol/L (3.5-5.1); SODIUM 143 mmol/L (135-144)
[2017-09-28] MEDS: HEPARIN 5,000 UNIT/0.5 ML VIAL SC ×2 (09:26→22:01)
[2017-09-28] MEDS: ATORVASTATIN 20 MG TAB PO (21:29)
[2017-09-29] MEDS: ACCU-CHEK XX (00:57)
[2017-09-29] MEDS: BUMETANIDE 1 MG TAB PO ×2 (06:22→18:27)
[2017-09-29] MEDS: PANTOPRAZOLE (EC) 40 MG TAB PO (06:22)
[2017-09-29] MEDS: INSULIN ASPART [NOVOLOG] 3 ML PEN SC ×4 (07:55→21:03)
[2017-09-29] MEDS: FERROUS SULFATE (EC) 325 MG TAB PO ×2 (08:52→20:49)
[2017-09-29] MEDS: AMLODIPINE 5 MG TAB PO ×2 (08:52→20:49)
[2017-09-29] MEDS: METOPROLOL 25 MG TAB PO ×2 (08:53→20:49)
[2017-09-29 09:00] LABS: ADD MAN DIFF? NO
[2017-09-29] MEDS: HEPARIN 5,000 UNIT/0.5 ML VIAL SC ×2 (09:00→21:03)
[2017-09-29] MEDS: ASPIRIN (EC) 81 MG TAB PO (09:00)
[2017-09-29 09:11] LABS: BASOPHIL # 0.1 10^3/ul (0.0-0.1); BASOPHILS % 0.6 % (0.0-2.0); EOSINOPHILS # 0.5 10^3/ul (0.0-0.5); EOSINOPHILS % 6.8 % (0.0-7.0); HEMATOCRIT 29.8 % (42.0-52.0); HEMOGLOBIN 9.8 g/dl (14.0-18.0); LYMPHOCYTES # 1.5 10^3/ul (0.8-2.9); LYMPHOCYTES % 18.5 % (15.0-51.0); MEAN CORPUSCULAR HEMOGLOBIN 25.9 pg (29.0-33.0); MEAN CORPUSCULAR HGB CONC 32.9 g/dl (32.0-37.0); MEAN CORPUSCULAR VOLUME 78.8 fl (82.0-101.0); MEAN PLATELET VOLUME 11.5 fl (7.4-10.4); MONOCYTE # 0.6 10^3/ul (0.3-0.9); MONOCYTES % 7.6 % (0.0-11.0); NEUTROPHIL # 5.3 10^3/ul (1.6-7.5); NEUTROPHILS % 66.1 % (39.0-77.0); PLATELET COUNT 435 10^3/UL (140-415); RED BLOOD COUNT 3.78 10^6/ul (4.70-6.10); RED CELL DISTRIBUTION WIDTH 14.2 % (11.5-14.5)
[2017-09-29 09:29] LABS: ANION GAP 13 (8-16); BLOOD UREA NITROGEN 49 mg/dl (7-20); CALCIUM 8.4 mg/dl (8.4-10.2); CARBON DIOXIDE 19 mmol/L (21-31); CHLORIDE 114 mmol/L (97-110); CREATININE 5.19 mg/dl (0.61-1.24); GLUCOSE 128 mg/dl (70-220); MAGNESIUM 1.7 mg/dl (1.7-2.5); PHOSPHORUS 3.9 mg/dl (2.5-4.9); POTASSIUM 4.2 mmol/L (3.5-5.1); SODIUM 142 mmol/L (135-144)
[2017-09-29] MEDS ORDERED: HEPARIN 1000 UNITS/ML 10 ML INJ (16:50)
[2017-09-29] MEDS ORDERED: HEPARIN 1000 UNITS/NS (A-LINE) 1,000 ML (16:50)
[2017-09-29] MEDS ORDERED: FENTAnyl 50 MCG/ML VIAL (16:51)
[2017-09-29] MEDS ORDERED: MIDAZOLAM 1 MG/ML 2 ML INJ (16:51)
[2017-09-29] MEDS: ATORVASTATIN 20 MG TAB PO (20:49)
[2017-09-30] MEDS: ACCU-CHEK XX (02:30)
[2017-09-30] MEDS: PANTOPRAZOLE (EC) 40 MG TAB PO (06:00)
[2017-09-30] MEDS: BUMETANIDE 1 MG TAB PO ×2 (06:00→17:36)
[2017-09-30] MEDS: INSULIN ASPART [NOVOLOG] 3 ML PEN SC ×4 (07:50→20:51)
[2017-09-30 08:27] LABS: ADD MAN DIFF? NO
[2017-09-30 08:35] LABS: WHITE BLOOD COUNT 9.3 10^3/ul (4.8-10.8)
[2017-09-30 08:35] LABS: BASOPHIL # 0.1 10^3/ul (0.0-0.1); BASOPHILS % 0.5 % (0.0-2.0); EOSINOPHILS # 0.6 10^3/ul (0.0-0.5); HEMATOCRIT 30.4 % (42.0-52.0); HEMOGLOBIN 10.1 g/dl (14.0-18.0); LYMPHOCYTES # 1.6 10^3/ul (0.8-2.9); LYMPHOCYTES % 17.2 % (15.0-51.0); MEAN CORPUSCULAR HEMOGLOBIN 26.2 pg (29.0-33.0); MEAN CORPUSCULAR HGB CONC 33.2 g/dl (32.0-37.0); MEAN CORPUSCULAR VOLUME 78.8 fl (82.0-101.0); MEAN PLATELET VOLUME 11.3 fl (7.4-10.4); MONOCYTE # 0.8 10^3/ul (0.3-0.9); MONOCYTES % 8.7 % (0.0-11.0); NEUTROPHIL # 6.2 10^3/ul (1.6-7.5); NEUTROPHILS % 67.4 % (39.0-77.0); PLATELET COUNT 450 10^3/UL (140-415); RED BLOOD COUNT 3.86 10^6/ul (4.70-6.10); RED CELL DISTRIBUTION WIDTH 14.3 % (11.5-14.5)
[2017-09-30 08:59] LABS: ANION GAP 14 (8-16); BLOOD UREA NITROGEN 49 mg/dl (7-20); CALCIUM 8.4 mg/dl (8.4-10.2); CARBON DIOXIDE 19 mmol/L (21-31); CHLORIDE 113 mmol/L (97-110); CREATININE 5.07 mg/dl (0.61-1.24); GLUCOSE 137 mg/dl (70-220); MAGNESIUM 1.7 mg/dl (1.7-2.5); PHOSPHORUS 4.5 mg/dl (2.5-4.9); POTASSIUM 4.1 mmol/L (3.5-5.1); SODIUM 142 mmol/L (135-144)
[2017-09-30] MEDS: ASPIRIN (EC) 81 MG TAB PO (08:59)
[2017-09-30] MEDS: AMLODIPINE 5 MG TAB PO ×2 (09:00→20:44)
[2017-09-30] MEDS: FERROUS SULFATE (EC) 325 MG TAB PO ×2 (09:00→20:44)
[2017-09-30] MEDS: METOPROLOL 25 MG TAB PO ×2 (09:01→20:44)
[2017-09-30] MEDS: HEPARIN 5,000 UNIT/0.5 ML VIAL SC ×2 (09:08→20:51)
[2017-09-30 10:57] LABS: HAAIG REFLEX REFLEX FILED
[2017-09-30 13:29] LABS: HEPATITIS B SURFACE ANTIGEN NEGATIVE (NEGATIVE)
[2017-09-30 13:47] LABS: HEPATITIS B CORE ANTIBODY NEGATIVE (NEGATIVE); HEPATITIS C VIRAL ANTIBODY NEGATIVE (NEGATIVE)
[2017-09-30] MEDS ORDERED: ALBUMIN HUMAN 25% 100 ML IV (17:00)
[2017-09-30] MEDS: HEPARIN 1000 UNITS/ML 10 ML INJ CATHETER (18:15)
[2017-09-30] MEDS: ATORVASTATIN 20 MG TAB PO (20:44)
[2017-10-01] MEDS: ACCU-CHEK XX (02:01)
[2017-10-01] MEDS: PANTOPRAZOLE (EC) 40 MG TAB PO (05:14)
[2017-10-01] MEDS: BUMETANIDE 1 MG TAB PO ×2 (05:14→17:38)
[2017-10-01] MEDS: INSULIN ASPART [NOVOLOG] 3 ML PEN SC ×4 (07:55→20:28)
[2017-10-01] MEDS: FERROUS SULFATE (EC) 325 MG TAB PO ×2 (08:24→22:33)
[2017-10-01] MEDS: METOPROLOL 25 MG TAB PO ×2 (08:25→22:32)
[2017-10-01] MEDS: ASPIRIN (EC) 81 MG TAB PO (08:25)
[2017-10-01] MEDS: AMLODIPINE 5 MG TAB PO ×2 (08:25→22:32)
[2017-10-01] MEDS: HEPARIN 5,000 UNIT/0.5 ML VIAL SC ×2 (08:26→21:00)
[2017-10-01] MEDS: SOD CHLORIDE 0.9% 500 ML IV (20:00)
[2017-10-01] MEDS: HEPARIN 1000 UNITS/ML 10 ML INJ CATHETER (22:00)
[2017-10-01] MEDS: ATORVASTATIN 20 MG TAB PO (22:32)
[2017-10-02] MEDS: ACCU-CHEK XX (02:00)
[2017-10-02] MEDS: PANTOPRAZOLE (EC) 40 MG TAB PO (05:52)
[2017-10-02] MEDS: BUMETANIDE 1 MG TAB PO ×2 (05:52→18:07)
[2017-10-02 06:45] LABS: ADD MAN DIFF? NO
[2017-10-02 06:57] LABS: BASOPHIL # 0.1 10^3/ul (0.0-0.1); BASOPHILS % 0.6 % (0.0-2.0); EOSINOPHILS # 0.4 10^3/ul (0.0-0.5); EOSINOPHILS % 4.4 % (0.0-7.0); HEMATOCRIT 28.5 % (42.0-52.0); HEMOGLOBIN 9.7 g/dl (14.0-18.0); LYMPHOCYTES # 1.9 10^3/ul (0.8-2.9); LYMPHOCYTES % 23.9 % (15.0-51.0); MEAN CORPUSCULAR HEMOGLOBIN 26.5 pg (29.0-33.0); MEAN CORPUSCULAR VOLUME 77.9 fl (82.0-101.0); MONOCYTE # 0.8 10^3/ul (0.3-0.9); MONOCYTES % 9.9 % (0.0-11.0); NEUTROPHIL # 4.9 10^3/ul (1.6-7.5); NEUTROPHILS % 60.8 % (39.0-77.0); PLATELET COUNT 381 10^3/UL (140-415); RED BLOOD COUNT 3.66 10^6/ul (4.70-6.10); RED CELL DISTRIBUTION WIDTH 14.4 % (11.5-14.5)
[2017-10-02 07:19] LABS: ANION GAP 11 (8-16); BLOOD UREA NITROGEN 26 mg/dl (7-20); CALCIUM 7.9 mg/dl (8.4-10.2); CARBON DIOXIDE 29 mmol/L (21-31); CHLORIDE 106 mmol/L (97-110); CREATININE 3.16 mg/dl (0.61-1.24); GLUCOSE 140 mg/dl (70-220); POTASSIUM 3.6 mmol/L (3.5-5.1); SODIUM 142 mmol/L (135-144)
[2017-10-02] MEDS: INSULIN ASPART [NOVOLOG] 3 ML PEN SC ×4 (07:55→21:00)
[2017-10-02] MEDS: AMLODIPINE 5 MG TAB PO ×2 (09:00→21:14)
[2017-10-02] MEDS: ASPIRIN (EC) 81 MG TAB PO (09:00)
[2017-10-02] MEDS: HEPARIN 5,000 UNIT/0.5 ML VIAL SC ×2 (09:00→21:15)
[2017-10-02] MEDS: METOPROLOL 25 MG TAB PO ×2 (09:00→21:14)
[2017-10-02] MEDS: FERROUS SULFATE (EC) 325 MG TAB PO ×2 (09:00→21:14)
[2017-10-02] MEDS ORDERED: THROMBIN 5000 UNIT VIAL (11:26)
[2017-10-02] MEDS ORDERED: GELATIN SIZE 100 SPONGE (11:27)
[2017-10-02] MEDS ORDERED: FENTAnyl 50 MCG/ML VIAL ×2 (11:47→12:10)
[2017-10-02] MEDS ORDERED: MIDAZOLAM 1 MG/ML 2 ML INJ (11:48)
[2017-10-02] MEDS ORDERED: ROPIVACAINE 0.5 % 30 ML VIAL (11:53)
[2017-10-02] MEDS ORDERED: BUPIVACAINE 0.25% (MPF) 30 ML INJ (11:54)
[2017-10-02] MEDS ORDERED: VANCOMYCIN 1 GM INJ (11:57)
[2017-10-02] MEDS: BUPIVACAINE 0.25% (MPF) 30 ML INJ (12:28)
[2017-10-02] MEDS: LIDOCAINE 1% (MPF) 30 ML INJ (12:29)
[2017-10-02] MEDS: HEPARIN 1000 UNITS/ML 10 ML INJ (12:46)
[2017-10-02] MEDS ORDERED: HEPARIN 1000 UNITS/ML 10 ML INJ (12:46)
[2017-10-02] MEDS ORDERED: ONDANSETRON 4 MG INJ (13:36)
[2017-10-02] MEDS: ONDANSETRON 4 MG INJ IV (16:16)
[2017-10-02] MEDS: ATORVASTATIN 20 MG TAB PO (21:14)
[2017-10-03] MEDS: ACCU-CHEK XX (02:00)
[2017-10-03] MEDS: BUMETANIDE 1 MG TAB PO ×2 (05:27→17:58)
[2017-10-03] MEDS: PANTOPRAZOLE (EC) 40 MG TAB PO (05:27)
[2017-10-03] MEDS: METOPROLOL 25 MG TAB PO ×2 (07:50→20:17)
[2017-10-03] MEDS: AMLODIPINE 5 MG TAB PO ×2 (07:51→20:17)
[2017-10-03] MEDS: FERROUS SULFATE (EC) 325 MG TAB PO ×2 (07:54→20:17)
[2017-10-03] MEDS: INSULIN ASPART [NOVOLOG] 3 ML PEN SC ×4 (07:54→20:22)
[2017-10-03] MEDS: ASPIRIN (EC) 81 MG TAB PO (07:54)
[2017-10-03] MEDS: HEPARIN 5,000 UNIT/0.5 ML VIAL SC ×2 (07:56→20:17)
[2017-10-03 08:11] LABS: ADD MAN DIFF? NO
[2017-10-03 08:18] LABS: BASOPHIL # 0.1 10^3/ul (0.0-0.1); BASOPHILS % 0.6 % (0.0-2.0); EOSINOPHILS # 0.2 10^3/ul (0.0-0.5); EOSINOPHILS % 2.1 % (0.0-7.0); HEMATOCRIT 30.5 % (42.0-52.0); HEMOGLOBIN 10.1 g/dl (14.0-18.0); LYMPHOCYTES # 1.5 10^3/ul (0.8-2.9); LYMPHOCYTES % 17.4 % (15.0-51.0); MEAN CORPUSCULAR HEMOGLOBIN 26.4 pg (29.0-33.0); MEAN CORPUSCULAR HGB CONC 33.1 g/dl (32.0-37.0); MEAN CORPUSCULAR VOLUME 79.6 fl (82.0-101.0); MEAN PLATELET VOLUME 11.6 fl (7.4-10.4); MONOCYTE # 0.9 10^3/ul (0.3-0.9); MONOCYTES % 10.7 % (0.0-11.0); NEUTROPHIL # 5.9 10^3/ul (1.6-7.5); NEUTROPHILS % 68.8 % (39.0-77.0); PLATELET COUNT 384 10^3/UL (140-415); RED BLOOD COUNT 3.83 10^6/ul (4.70-6.10); RED CELL DISTRIBUTION WIDTH 14.6 % (11.5-14.5)
[2017-10-03 08:18] LABS: WHITE BLOOD COUNT 8.6 10^3/ul (4.8-10.8)
[2017-10-03 08:49] LABS: ANION GAP 12 (8-16); BLOOD UREA NITROGEN 31 mg/dl (7-20); CALCIUM 8.2 mg/dl (8.4-10.2); CARBON DIOXIDE 25 mmol/L (21-31); CHLORIDE 108 mmol/L (97-110); CREATININE 3.58 mg/dl (0.61-1.24); GLUCOSE 104 mg/dl (70-220); POTASSIUM 3.9 mmol/L (3.5-5.1); SODIUM 141 mmol/L (135-144)
[2017-10-03 16:44] LABS: HIV 1&2 ANTIBODY NEGATIVE (NEGATIVE)
[2017-10-03] MEDS: HEPARIN 1000 UNITS/ML 10 ML INJ CATHETER (20:14)
[2017-10-03] MEDS: ATORVASTATIN 20 MG TAB PO (20:17)
[2017-10-04] MEDS: ACCU-CHEK XX (02:00)
[2017-10-04 06:08] LABS: ADD MAN DIFF? NO
[2017-10-04 06:17] LABS: BASOPHILS % 0.5 % (0.0-2.0); EOSINOPHILS # 0.3 10^3/ul (0.0-0.5); EOSINOPHILS % 3.9 % (0.0-7.0); HEMATOCRIT 30.2 % (42.0-52.0); LYMPHOCYTES # 1.8 10^3/ul (0.8-2.9); LYMPHOCYTES % 23.4 % (15.0-51.0); MEAN CORPUSCULAR HEMOGLOBIN 26.3 pg (29.0-33.0); MEAN CORPUSCULAR HGB CONC 33.1 g/dl (32.0-37.0); MEAN CORPUSCULAR VOLUME 79.5 fl (82.0-101.0); MEAN PLATELET VOLUME 10.8 fl (7.4-10.4); MONOCYTE # 0.7 10^3/ul (0.3-0.9); MONOCYTES % 9.4 % (0.0-11.0); NEUTROPHIL # 4.9 10^3/ul (1.6-7.5); NEUTROPHILS % 62.5 % (39.0-77.0); PLATELET COUNT 360 10^3/UL (140-415); RED CELL DISTRIBUTION WIDTH 14.6 % (11.5-14.5)
[2017-10-04 06:17] LABS: WHITE BLOOD COUNT 7.9 10^3/ul (4.8-10.8)
[2017-10-04] MEDS: PANTOPRAZOLE (EC) 40 MG TAB PO (06:31)
[2017-10-04] MEDS: BUMETANIDE 1 MG TAB PO ×2 (06:32→17:42)
[2017-10-04 06:52] LABS: ANION GAP 13 (8-16); BLOOD UREA NITROGEN 20 mg/dl (7-20); CALCIUM 8.1 mg/dl (8.4-10.2); CARBON DIOXIDE 29 mmol/L (21-31); CHLORIDE 103 mmol/L (97-110); CREATININE 2.96 mg/dl (0.61-1.24); GLUCOSE 123 mg/dl (70-220); POTASSIUM 3.7 mmol/L (3.5-5.1); SODIUM 141 mmol/L (135-144)
[2017-10-04] MEDS: INSULIN ASPART [NOVOLOG] 3 ML PEN SC ×4 (08:15→21:31)
[2017-10-04] MEDS: ASPIRIN (EC) 81 MG TAB PO (10:08)
[2017-10-04] MEDS: FERROUS SULFATE (EC) 325 MG TAB PO ×2 (10:08→20:45)
[2017-10-04] MEDS: AMLODIPINE 5 MG TAB PO ×2 (10:09→20:45)
[2017-10-04] MEDS: METOPROLOL 25 MG TAB PO ×2 (10:09→20:50)
[2017-10-04] MEDS: HEPARIN 5,000 UNIT/0.5 ML VIAL SC ×2 (10:12→20:48)
[2017-10-04] MEDS: ATORVASTATIN 20 MG TAB PO (20:45)
[2017-10-05] MEDS: ACCU-CHEK XX (02:00)
[2017-10-05] MEDS: BUMETANIDE 1 MG TAB PO (05:25)
[2017-10-05] MEDS: PANTOPRAZOLE (EC) 40 MG TAB PO (05:25)
[2017-10-05 05:47] LABS: ADD MAN DIFF? NO
[2017-10-05 05:58] LABS: BASOPHILS % 0.5 % (0.0-2.0); EOSINOPHILS # 0.4 10^3/ul (0.0-0.5); EOSINOPHILS % 4.5 % (0.0-7.0); HEMATOCRIT 29.1 % (42.0-52.0); LYMPHOCYTES # 1.5 10^3/ul (0.8-2.9); LYMPHOCYTES % 19.7 % (15.0-51.0); MEAN CORPUSCULAR HEMOGLOBIN 27.1 pg (29.0-33.0); MEAN CORPUSCULAR HGB CONC 34.4 g/dl (32.0-37.0); MEAN CORPUSCULAR VOLUME 78.9 fl (82.0-101.0); MEAN PLATELET VOLUME 11.3 fl (7.4-10.4); MONOCYTE # 0.7 10^3/ul (0.3-0.9); MONOCYTES % 9.6 % (0.0-11.0); NEUTROPHILS % 65.4 % (39.0-77.0); PLATELET COUNT 336 10^3/UL (140-415); RED BLOOD COUNT 3.69 10^6/ul (4.70-6.10); RED CELL DISTRIBUTION WIDTH 14.8 % (11.5-14.5)
[2017-10-05 05:58] LABS: WHITE BLOOD COUNT 7.7 10^3/ul (4.8-10.8)
[2017-10-05 06:39] LABS: ANION GAP 13 (8-16); BLOOD UREA NITROGEN 28 mg/dl (7-20); CALCIUM 7.9 mg/dl (8.4-10.2); CARBON DIOXIDE 29 mmol/L (21-31); CHLORIDE 102 mmol/L (97-110); CREATININE 3.81 mg/dl (0.61-1.24); GLUCOSE 164 mg/dl (70-220); POTASSIUM 3.6 mmol/L (3.5-5.1); SODIUM 140 mmol/L (135-144)
[2017-10-05] MEDS: INSULIN ASPART [NOVOLOG] 3 ML PEN SC ×2 (08:58→12:15)
[2017-10-05] MEDS: HEPARIN 5,000 UNIT/0.5 ML VIAL SC (09:00)
[2017-10-05] MEDS: HEPARIN 1000 UNITS/ML 10 ML INJ CATHETER (11:38)
[2017-10-05] MEDS: FERROUS SULFATE (EC) 325 MG TAB PO (12:37)
[2017-10-05] MEDS: ASPIRIN (EC) 81 MG TAB PO (12:37)
[2017-10-05] MEDS: AMLODIPINE 5 MG TAB PO (12:37)
[2017-10-05] MEDS: METOPROLOL 25 MG TAB PO (12:38)
== END 2017-10-05 16:20 | disposition home or self-care (01) | DRG 264 ==
LOC: E/R 01:55 → MS2 10-04 00:48 → TEL 04:14
PROC: 0JH63XZ Insertion of Tunneled Vascular Access Device into Chest Subcutaneous Tissue and Fascia, Percutaneous Approach (ICD-10-PCS; 2017-09-29 16:30)
PROC: 02HV33Z Insertion of Infusion Device into Superior Vena Cava, Percutaneous Approach (ICD-10-PCS; 2017-09-29 16:30)
PROC: B548ZZA Ultrasonography of Superior Vena Cava, Guidance (ICD-10-PCS; 2017-09-29 16:30)
PROC: 03180ZF Bypass Left Brachial Artery to Lower Arm Vein, Open Approach (ICD-10-PCS; principal; 2017-09-29 16:40)
PROC: 0W9930Z Drainage of Right Pleural Cavity with Drainage Device, Percutaneous Approach (ICD-10-PCS; 2017-09-29 16:40)
PROC: 5A1D70Z Performance of Urinary Filtration, Intermittent, Less than 6 Hours Per Day (ICD-10-PCS; 2017-09-29 16:40)
DX: I13.2 Hypertensive heart and chronic kidney disease with heart failure and with stage 5 chronic kidney disease, or end stage renal disease (principal); J96.00 Acute respiratory failure, unspecified whether with hypoxia or hypercapnia; N17.0 Acute kidney failure with tubular necrosis; I50.33 Acute on chronic diastolic (congestive) heart failure; N18.6 End stage renal disease; J90 Pleural effusion, not elsewhere classified; E87.2 Acidosis; E11.22 Type 2 diabetes mellitus with diabetic chronic kidney disease; I16.0 Hypertensive urgency; D50.9 Iron deficiency anemia, unspecified; D63.1 Anemia in chronic kidney disease; Z79.4 Long term (current) use of insulin; Z86.73 Personal history of transient ischemic attack (TIA), and cerebral infarction without residual deficits; E83.42 Hypomagnesemia; R50.9 Fever, unspecified; E83.89 Other disorders of mineral metabolism; E87.70 Fluid overload, unspecified
CPT/HCPCS: 36415; 71045; 71046; 76705; 76942; 80048; 80053; 81001; 81003; 82140; 82962; 83036; 83615; 83690; 83735; 83880; 84100; 84155; 84157; 84300; 84443; 84484; 85025; 85610; 86160; 86703; 86704; 86709; 86803; 87040; 87070; 87086; 87102; 87116; 87340; 89051; 89190; 90935; 93005; 93306; 93923; 93970; 94660; 96374; 99291-25

== ENCOUNTER 2017-12-06 20:16 | Emergency (ER) | payer OTHER ==
[2017-12-06 20:42] LABS: ADD MAN DIFF? NO
[2017-12-06 20:46] LABS: WHITE BLOOD COUNT 8.5 10^3/ul (4.8-10.8)
[2017-12-06 20:46] LABS: BASOPHIL # 0.1 10^3/ul (0.0-0.1); BASOPHILS % 0.7 % (0.0-2.0); EOSINOPHILS # 0.3 10^3/ul (0.0-0.5); EOSINOPHILS % 3.4 % (0.0-7.0); HEMATOCRIT 43.9 % (42.0-52.0); HEMOGLOBIN 15.3 g/dl (14.0-18.0); LYMPHOCYTES # 2.2 10^3/ul (0.8-2.9); LYMPHOCYTES % 26.2 % (15.0-51.0); MEAN CORPUSCULAR HEMOGLOBIN 28.3 pg (29.0-33.0); MEAN CORPUSCULAR HGB CONC 34.9 g/dl (32.0-37.0); MEAN CORPUSCULAR VOLUME 81.1 fl (82.0-101.0); MEAN PLATELET VOLUME 11.6 fl (7.4-10.4); MONOCYTE # 0.8 10^3/ul (0.3-0.9); MONOCYTES % 9.2 % (0.0-11.0); NEUTROPHIL # 5.1 10^3/ul (1.6-7.5); NEUTROPHILS % 60.3 % (39.0-77.0); PLATELET COUNT 272 10^3/UL (140-415); RED BLOOD COUNT 5.41 10^6/ul (4.70-6.10); RED CELL DISTRIBUTION WIDTH 14.3 % (11.5-14.5)
[2017-12-06] MEDS ORDERED: SOD CHLORIDE 0.9% 100 ML (20:48)
[2017-12-06] MEDS ORDERED: IODIXANOL LOCM 100 ML BTL (20:48)
[2017-12-06 21:07] LABS: INR 0.96; PROTIME 12.9 Sec (11.9-14.9)
[2017-12-06 21:09] LABS: ANION GAP 14 (8-16); BLOOD UREA NITROGEN 32 mg/dl (7-20); CALCIUM 8.4 mg/dl (8.4-10.2); CARBON DIOXIDE 33 mmol/L (21-31); CHLORIDE 99 mmol/L (97-110); CHOLESTEROL 271 mg/dl (100-200); CREATININE 2.68 mg/dl (0.61-1.24); GLUCOSE 178 mg/dl (70-220); HDL CHOLESTEROL 47 mg/dl (30-78); POTASSIUM 3.5 mmol/L (3.5-5.1); SODIUM 142 mmol/L (135-144)
[2017-12-06] MEDS: LABETALOL HCL 20MG INJ IV (21:10)
[2017-12-06 21:17] LABS: TRIGLYCERIDES 664 mg/dl (0-149)
[2017-12-06 21:20] LABS: TROPONIN-I 0.018 ng/ml (0.00-0.12)
[2017-12-06 21:26] LABS: LDL CHOLESTEROL,CALCULATED 92 mg/dl
[2017-12-06 21:28] LABS: CHOL/HDL RATIO 5.8 RATIO
[2017-12-06] MEDS ORDERED: ALTEPLASE (tPA) 1 MG/ML BOLUS SYG IV* ×2 (21:30)
[2017-12-06] MEDS ORDERED: SOD CHLORIDE 0.9% 50 ML IV ×3 (21:30)
[2017-12-06] MEDS ORDERED: ALTEPLASE 100 MG INJ IV* ×2 (21:30)
[2017-12-06 21:37] LABS: PARTIAL THROMBOPLASTIN TIME > 180.0 Sec (25.0-35.0)
[2017-12-06 21:53] LABS: HEMOGLOBIN A1C 7.3 % (0-5.9)
[2017-12-06] MEDS: ALTEPLASE (tPA) 1 MG/ML BOLUS SYG IV* (22:07)
[2017-12-06] MEDS: ALTEPLASE 100 MG INJ IV* (22:07)
[2017-12-06] MEDS: ASPIRIN 81 MG TAB PO (22:34)
== END 2017-12-06 23:20 | disposition short-term general hospital (02) ==
LOC: E/R 23:20
DX: I63.9 Cerebral infarction, unspecified (principal); I16.1 Hypertensive emergency; N18.6 End stage renal disease; I12.0 Hypertensive chronic kidney disease with stage 5 chronic kidney disease or end stage renal disease; E11.22 Type 2 diabetes mellitus with diabetic chronic kidney disease; Z79.82 Long term (current) use of aspirin; Z99.2 Dependence on renal dialysis
CPT/HCPCS: 36415; 70450; 70496; 70498; 71045; 80048; 80061; 82962; 83036; 84484; 85025; 85610; 85730; 86850; 86900; 86901; 93005; 96374; 99291-25

== ENCOUNTER 2018-11-24 17:00 | Inpatient (IN) | payer MEDICARE, OTHER ==
[2018-11-24] MEDS: ONDANSETRON 4 MG INJ IV ×2 (17:32→21:08)
[2018-11-24] MEDS: LORAZEPAM 2 MG INJ IV (17:32)
[2018-11-24 18:18] LABS: ADD MAN DIFF? NO
[2018-11-24 18:24] LABS: WHITE BLOOD COUNT 9.9 10^3/ul (4.8-10.8)
[2018-11-24 18:24] LABS: BASOPHIL # 0.1 10^3/ul (0.0-0.1); BASOPHILS % 0.7 % (0.0-2.0); EOSINOPHILS # 0.2 10^3/ul (0.0-0.5); EOSINOPHILS % 1.7 % (0.0-7.0); HEMATOCRIT 36.1 % (42.0-52.0); HEMOGLOBIN 12.3 g/dl (14.0-18.0); LYMPHOCYTES % 10.2 % (15.0-51.0); MEAN CORPUSCULAR HGB CONC 34.1 g/dl (32.0-37.0); MEAN CORPUSCULAR VOLUME 85.1 fl (82.0-101.0); MEAN PLATELET VOLUME 10.6 fl (7.4-10.4); MONOCYTE # 0.7 10^3/ul (0.3-0.9); MONOCYTES % 7.2 % (0.0-11.0); NEUTROPHIL # 7.9 10^3/ul (1.6-7.5); NEUTROPHILS % 79.9 % (39.0-77.0); PLATELET COUNT 309 10^3/UL (140-415); RED BLOOD COUNT 4.24 10^6/ul (4.70-6.10); RED CELL DISTRIBUTION WIDTH 12.6 % (11.5-14.5)
[2018-11-24 18:42] LABS: INR 0.88; PT RATIO 0.9
[2018-11-24 18:43] LABS: PARTIAL THROMBOPLASTIN TIME 29.1 Sec (23.0-35.0)
[2018-11-24] MEDS: PIPER-TAZO 3.375 GM IV (PMX) 100 ML IVPB (18:43)
[2018-11-24 18:47] LABS: LIPASE 312 U/L (23-300)
[2018-11-24 18:49] LABS: LACTIC ACID 3.2 mmol/L (0.5-2.0)
[2018-11-24 18:51] LABS: ALANINE AMINOTRANSFERASE 15 IU/L (13-69); ALBUMIN 3.7 g/dl (3.3-4.9); ALBUMIN/GLOBULIN RATIO 1.02; ALKALINE PHOSPHATASE 118 IU/L (42-121); ANION GAP 13 (5-13); ASPARTATE AMINO TRANSFERASE 22 IU/L (15-46); BLOOD UREA NITROGEN 32 mg/dl (7-20); CALCIUM 7.5 mg/dl (8.4-10.2); CARBON DIOXIDE 29 mmol/L (21-31); CHLORIDE 97 mmol/L (97-110); CREATININE 5.48 mg/dl (0.61-1.24); Estimated GFR 11 mL/min (>60); GLUCOSE 196 mg/dl (70-220); POTASSIUM 3.3 mmol/L (3.5-5.1); SODIUM 139 mmol/L (135-144); TOTAL PROTEIN 7.3 g/dl (6.1-8.1)
[2018-11-24 18:58] LABS: TROPONIN-I 0.021 ng/ml (0.000-0.120)
[2018-11-24 19:02] LABS: PHENYTOIN (DILANTIN) < 3.0 ug/ml (10.0-20.0)
[2018-11-24] MEDS: FOSPHENYTOIN (PE) 1,000 MG in SOD CHLORIDE 0.9% 80 ML IVPB (19:58)
[2018-11-24] MEDS ORDERED: NACL 0.9% 3 ML SYG IV (23:00)
[2018-11-24] MEDS ORDERED: ACETAMINOPHEN 325 MG TAB PO (23:00)
[2018-11-24 23:56] LABS: LACTIC ACID 7.9 mmol/L (0.5-2.0)
[2018-11-25] MEDS ORDERED: VANCOMYCIN IV PER PHARMACY XX (00:30)
[2018-11-25] MEDS: SOD CHLORIDE 0.9% 250 ML IV (00:39)
[2018-11-25] MEDS: CEFEPIME 1GM/50 ML (PMX) 50 ML IVPB ×2 (00:40→23:39)
[2018-11-25] MEDS: VANCOMYCIN HCL 1.25 GM in SOD CHLORIDE 0.9% 250 ML IVPB (02:20)
[2018-11-25 06:30] LABS: ABNORMAL IP MESSAGE 1; HEMATOCRIT 33.5 % (42.0-52.0); HEMOGLOBIN 11.4 g/dl (14.0-18.0); MEAN CORPUSCULAR HEMOGLOBIN 28.9 pg (29.0-33.0); MEAN PLATELET VOLUME 10.8 fl (7.4-10.4); PLATELET COUNT 301 10^3/UL (140-415); POSITIVE DIFF @See below; RED BLOOD COUNT 3.94 10^6/ul (4.70-6.10); RED CELL DISTRIBUTION WIDTH 12.7 % (11.5-14.5)
[2018-11-25 06:30] LABS: WHITE BLOOD COUNT 19.7 10^3/ul (4.8-10.8)
[2018-11-25 07:07] LABS: ALANINE AMINOTRANSFERASE 19 IU/L (13-69); ALBUMIN/GLOBULIN RATIO 1.07; ALKALINE PHOSPHATASE 78 IU/L (42-121); ANION GAP 11 (5-13); ASPARTATE AMINO TRANSFERASE 22 IU/L (15-46); BILIRUBIN,INDIRECT 0.3 mg/dl (0-1.1); BILIRUBIN,TOTAL 0.3 mg/dl (0.2-1.3); BLOOD UREA NITROGEN 41 mg/dl (7-20); CALCIUM 6.8 mg/dl (8.4-10.2); CARBON DIOXIDE 30 mmol/L (21-31); CHLORIDE 98 mmol/L (97-110); CHOL/HDL RATIO 4.5 RATIO; CHOLESTEROL 212 mg/dl (100-200); CREATININE 6.61 mg/dl (0.61-1.24); Estimated GFR 9 mL/min (>60); GLUCOSE 182 mg/dl (70-220); HDL CHOLESTEROL 47 mg/dl (30-78); LDL CHOLESTEROL,CALCULATED 148 mg/dl; MAGNESIUM 1.4 mg/dl (1.7-2.5); POTASSIUM 3.3 mmol/L (3.5-5.1); SODIUM 139 mmol/L (135-144); TOTAL PROTEIN 5.8 g/dl (6.1-8.1); TRIGLYCERIDES 87 mg/dl (0-149)
[2018-11-25 07:08] LABS: LACTIC ACID 1.2 mmol/L (0.5-2.0)
[2018-11-25 07:18] LABS: HEMOGLOBIN A1C 6.5 % (0-5.9)
[2018-11-25 07:21] LABS: ADD MAN DIFF? YES
[2018-11-25] MEDS ORDERED: LORAZEPAM 2 MG INJ IV ×3 (09:00→18:30)
[2018-11-25 09:16] LABS: LACTIC ACID 1.3 mmol/L (0.5-2.0)
[2018-11-25] MEDS: ONDANSETRON 4 MG INJ IV (09:37)
[2018-11-25] MEDS: SOD CHLORIDE 0.9% 1,000 ML IV ×2 (09:42→20:00)
[2018-11-25] MEDS: CLINDAMYCIN 600 MG/D5W (PMX) 50 ML IVPB ×3 (09:43→22:08)
[2018-11-25] MEDS ORDERED: LEVETIRACETAM IV 500 MG in DEXTROSE 5% 100 ML IVPB (10:00)
[2018-11-25] MEDS ORDERED: LEVETIRACETAM IV 750 MG in DEXTROSE 5% 100 ML IVPB (10:00)
[2018-11-25 10:37] LABS: ANISOCYTOSIS 1+ (0-0); BAND NEUTROPHILS #M 3.9 10^3/ul (0.0-0.6); BAND NEUTROPHILS % (M) 20 % (0-4); GIANT THROMBO% (M) 2 % (0-0); LYMPHOCYTES #M 0.5 10^3/ul (0.8-2.9); LYMPHOCYTES % (M) 3 % (15-51); METAMYELOCYTES #M 0.1 10^3/ul (0.0-0.0); METAMYELOCYTES %M 1 % (0-0); MICROCYTOSIS 1+ (0-0); MONOCYTE #M 2.1 10^3/ul (0.3-0.9); MONOCYTES % (M) 11 % (0-11); MYELOCYTES #M 0.1 10^3/ul (0.0-0.0); MYELOCYTES % (M) 1 % (0-0); PLATELET ESTIMATE NORMAL; POIKILOCYTOSIS 2+ (0-0); REACTIVE LYMPHOCYTES #M 0.5 10^3/ul (0.0-0.0); REACTIVE LYMPHOCYTES% (M) 3 % (0-0); SEG NEUT #M 12.8 10^3/ul (1.6-7.5); SEGMENTED NEUTROPHILS (M) % 61 % (39-77); SMUDGE%M 2 % (0-0)
[2018-11-25] MEDS: LEVETIRACETAM 500 MG (PMX) 100 ML IVPB ×2 (11:10→21:21)
[2018-11-25] MEDS: ALBUTEROL 0.083% (NEB) 2.5 MG/3 ML AMP HHN (19:52)
[2018-11-25] MEDS ORDERED: INSULIN ASPART [NOVOLOG] 3 ML PEN SC (21:00)
[2018-11-25] MEDS: INSULIN ASPART [NOVOLOG] 3 ML PEN SC (21:00)
[2018-11-25] MEDS: POTASSIUM CHLORIDE 20 MEQ POWDER FOR ORAL SOLN PO (21:32)
[2018-11-25] MEDS: MAGNESIUM SULFATE 3 GM in DEXTROSE 5% 100 ML IVPB (22:35)
[2018-11-26] MEDS: ALBUTEROL 0.083% (NEB) 2.5 MG/3 ML AMP HHN ×4 (01:14→19:46)
[2018-11-26] MEDS: ACCU-CHEK XX (02:00)
[2018-11-26] MEDS: CEFEPIME 1GM/50 ML (PMX) 50 ML IVPB (02:30)
[2018-11-26] MEDS: CLINDAMYCIN 600 MG/D5W (PMX) 50 ML IVPB ×3 (06:26→23:36)
[2018-11-26 06:27] LABS: ADD MAN DIFF? NO; HAAIG REFLEX REFLEX FILED
[2018-11-26 06:35] LABS: WHITE BLOOD COUNT 11.8 10^3/ul (4.8-10.8)
[2018-11-26 06:35] LABS: BASOPHILS % 0.3 % (0.0-2.0); EOSINOPHILS # 0.1 10^3/ul (0.0-0.5); EOSINOPHILS % 0.8 % (0.0-7.0); HEMATOCRIT 32.7 % (42.0-52.0); HEMOGLOBIN 10.7 g/dl (14.0-18.0); LYMPHOCYTES # 1.2 10^3/ul (0.8-2.9); LYMPHOCYTES % 10.3 % (15.0-51.0); MEAN CORPUSCULAR HEMOGLOBIN 28.6 pg (29.0-33.0); MEAN CORPUSCULAR HGB CONC 32.7 g/dl (32.0-37.0); MEAN CORPUSCULAR VOLUME 87.4 fl (82.0-101.0); MEAN PLATELET VOLUME 11.3 fl (7.4-10.4); MONOCYTES % 8.1 % (0.0-11.0); NEUTROPHIL # 9.4 10^3/ul (1.6-7.5); NEUTROPHILS % 80.2 % (39.0-77.0); PLATELET COUNT 278 10^3/UL (140-415); RED BLOOD COUNT 3.74 10^6/ul (4.70-6.10); RED CELL DISTRIBUTION WIDTH 12.7 % (11.5-14.5)
[2018-11-26 06:53] LABS: INR 1.05; PROTIME 13.8 Sec (11.9-14.9); PT RATIO 1.1
[2018-11-26 06:54] LABS: PARTIAL THROMBOPLASTIN TIME 34.9 Sec (23.0-35.0)
[2018-11-26 07:13] LABS: MAGNESIUM 2.4 mg/dl (1.7-2.5)
[2018-11-26 07:13] LABS: PHOSPHORUS 7.2 mg/dl (2.5-4.9)
[2018-11-26 07:37] LABS: HEPATITIS B SURFACE ANTIGEN NEGATIVE (NEGATIVE)
[2018-11-26 07:55] LABS: HEPATITIS B CORE ANTIBODY NEGATIVE (NEGATIVE); HEPATITIS C VIRAL ANTIBODY NEGATIVE (NEGATIVE)
[2018-11-26] MEDS: INSULIN ASPART [NOVOLOG] 3 ML PEN SC ×4 (08:00→20:30)
[2018-11-26 08:11] LABS: FOLATE 7.8 ng/ml (2.8-20.0)
[2018-11-26] MEDS: FAMOTIDINE 20 MG INJ IV (08:37)
[2018-11-26] MEDS: LEVETIRACETAM 500 MG (PMX) 100 ML IVPB ×2 (08:40→21:32)
[2018-11-26] MEDS: ASPIRIN (EC) 81 MG TAB PO (08:41)
[2018-11-26 08:46] LABS: ANION GAP 13 (5-13); BLOOD UREA NITROGEN 48 mg/dl (7-20); CALCIUM 6.8 mg/dl (8.4-10.2); CARBON DIOXIDE 27 mmol/L (21-31); CHLORIDE 102 mmol/L (97-110); CREATININE 8.59 mg/dl (0.61-1.24); Estimated GFR 6 mL/min (>60); GLUCOSE 119 mg/dl (70-220); POTASSIUM 3.4 mmol/L (3.5-5.1); SODIUM 142 mmol/L (135-144)
[2018-11-26] MEDS: SOD CHLORIDE 0.9% 1,000 ML IV (09:00)
[2018-11-26 11:24] LABS: HEMOGLOBIN A1C 6.6 % (0-5.9)
[2018-11-26 12:04] LABS: AMMONIA < 9 umol/l (9-30)
[2018-11-26] MEDS: POTASSIUM CHLORIDE 100 ML IVPB (12:24)
[2018-11-26] MEDS: VALPROATE INJ 1,000 MG in SOD CHLORIDE 0.9% 100 ML IVPB (16:07)
[2018-11-26] MEDS: SEVELAMER CARBONATE 800 MG TABLET PO (17:47)
[2018-11-26] MEDS: CALCIUM GLUCONATE 10% 1 GM in DEXTROSE 5% 100 ML IVPB ×2 (17:48→20:31)
[2018-11-26 18:45] LABS: VALPROATE 16 ug/ml (50-100)
[2018-11-26] MEDS ORDERED: VALPROATE INJ 500 MG in SOD CHLORIDE 0.9% 50 ML IVPB (21:00)
[2018-11-26] MEDS: VALPROATE INJ 1,000 MG in DEXTROSE 5% 100 ML IVPB (21:40)
[2018-11-27] MEDS: CEFEPIME 1GM/50 ML (PMX) 50 ML IVPB (01:11)
[2018-11-27] MEDS: SOD CHLORIDE 0.9% 1,000 ML IV (01:12)
[2018-11-27] MEDS: ALBUTEROL 0.083% (NEB) 2.5 MG/3 ML AMP HHN ×4 (01:35→19:31)
[2018-11-27] MEDS: ACCU-CHEK XX (02:00)
[2018-11-27] MEDS: CLINDAMYCIN 600 MG/D5W (PMX) 50 ML IVPB ×2 (06:00→13:26)
[2018-11-27 06:28] LABS: ANION GAP 15 (5-13); BLOOD UREA NITROGEN 48 mg/dl (7-20); CALCIUM 7.1 mg/dl (8.4-10.2); CARBON DIOXIDE 24 mmol/L (21-31); CHLORIDE 104 mmol/L (97-110); Estimated GFR 6 mL/min (>60); GLUCOSE 115 mg/dl (70-220); SODIUM 143 mmol/L (135-144)
[2018-11-27 06:30] LABS: MAGNESIUM 2.2 mg/dl (1.7-2.5)
[2018-11-27 06:30] LABS: PHOSPHORUS 7.4 mg/dl (2.5-4.9)
[2018-11-27 06:31] LABS: VANCOMYCIN,RANDOM 12.6 ug/ml
[2018-11-27] MEDS: SEVELAMER CARBONATE 800 MG TABLET PO ×3 (08:00→17:45)
[2018-11-27] MEDS: INSULIN ASPART [NOVOLOG] 3 ML PEN SC ×4 (08:00→20:48)
[2018-11-27] MEDS: LEVETIRACETAM 500 MG (PMX) 100 ML IVPB ×2 (10:33→20:42)
[2018-11-27] MEDS: FAMOTIDINE 20 MG INJ IV (10:34)
[2018-11-27] MEDS: MULTIVIT/CA CARB/B CMPLX/FA TAB PO (10:34)
[2018-11-27] MEDS: CHOLECALCIFEROL 1,000 UNIT TAB PO (10:34)
[2018-11-27] MEDS: ASPIRIN (EC) 81 MG TAB PO (10:34)
[2018-11-27] MEDS: ENOXAPARIN 30 MG/0.3 ML SYG SC (10:36)
[2018-11-27 10:48] LABS: IONIZED CALCIUM 0.8 mmol/L (1.1-1.4)
[2018-11-27] MEDS: VALPROATE INJ 500 MG in SOD CHLORIDE 0.9% 50 ML IVPB (11:19)
[2018-11-27 14:33] LABS: VALPROATE 41 ug/ml (50-100)
[2018-11-27 14:42] LABS: VALPROATE 41 ug/ml (50-100)
[2018-11-27] MEDS: EPOETIN ALFA-EPBX (ESRD) 10,000 UNIT/ML VIAL SC (17:45)
[2018-11-27] MEDS: VANCOMYCIN 1 GM 250 ML IVPB (17:45)
[2018-11-27] MEDS: VALPROATE INJ 750 MG in SOD CHLORIDE 0.9% 50 ML IVPB (21:19)
[2018-11-27] MEDS: HEPARIN 5,000 UNIT/1 ML VIAL SC (21:31)
[2018-11-27] MEDS: metroNIDAZOLE 500 MG/NS (PMX) 100 ML IVPB (22:39)
[2018-11-28] MEDS: hydrALAzine 20 MG INJ IV (00:08)
[2018-11-28] MEDS: CEFEPIME 1GM/50 ML (PMX) 50 ML IVPB (00:15)
[2018-11-28] MEDS: ALBUTEROL 0.083% (NEB) 2.5 MG/3 ML AMP HHN ×4 (01:44→20:01)
[2018-11-28] MEDS: ACCU-CHEK XX (01:51)
[2018-11-28 05:43] LABS: ADD MAN DIFF? NO
[2018-11-28 05:52] LABS: WHITE BLOOD COUNT 8.5 10^3/ul (4.8-10.8)
[2018-11-28 05:52] LABS: BASOPHIL # 0.1 10^3/ul (0.0-0.1); BASOPHILS % 0.6 % (0.0-2.0); EOSINOPHILS # 0.3 10^3/ul (0.0-0.5); EOSINOPHILS % 3.3 % (0.0-7.0); HEMATOCRIT 33.3 % (42.0-52.0); HEMOGLOBIN 11.1 g/dl (14.0-18.0); LYMPHOCYTES % 11.4 % (15.0-51.0); MEAN CORPUSCULAR HEMOGLOBIN 28.6 pg (29.0-33.0); MEAN CORPUSCULAR HGB CONC 33.3 g/dl (32.0-37.0); MEAN CORPUSCULAR VOLUME 85.8 fl (82.0-101.0); MONOCYTE # 0.9 10^3/ul (0.3-0.9); NEUTROPHIL # 6.3 10^3/ul (1.6-7.5); NEUTROPHILS % 74.2 % (39.0-77.0); PLATELET COUNT 291 10^3/UL (140-415); RED BLOOD COUNT 3.88 10^6/ul (4.70-6.10); RED CELL DISTRIBUTION WIDTH 12.7 % (11.5-14.5)
[2018-11-28 06:36] LABS: PHOSPHORUS 4.3 mg/dl (2.5-4.9)
[2018-11-28 06:36] LABS: MAGNESIUM 1.9 mg/dl (1.7-2.5)
[2018-11-28 06:42] LABS: ANION GAP 8 (5-13); BLOOD UREA NITROGEN 25 mg/dl (7-20); CALCIUM 7.8 mg/dl (8.4-10.2); CARBON DIOXIDE 26 mmol/L (21-31); CHLORIDE 108 mmol/L (97-110); CREATININE 6.42 mg/dl (0.61-1.24); Estimated GFR 9 mL/min (>60); GLUCOSE 143 mg/dl (70-220); POTASSIUM 4.2 mmol/L (3.5-5.1); SODIUM 142 mmol/L (135-144)
[2018-11-28] MEDS: metroNIDAZOLE 500 MG/NS (PMX) 100 ML IVPB ×3 (06:51→23:31)
[2018-11-28] MEDS: HEPARIN 5,000 UNIT/1 ML VIAL SC ×3 (07:07→21:37)
[2018-11-28] MEDS: SEVELAMER CARBONATE 800 MG TABLET PO ×3 (08:00→16:51)
[2018-11-28] MEDS: INSULIN ASPART [NOVOLOG] 3 ML PEN SC ×4 (08:06→21:00)
[2018-11-28] MEDS: ENOXAPARIN 30 MG/0.3 ML SYG SC (09:05)
[2018-11-28] MEDS: LEVETIRACETAM 500 MG (PMX) 100 ML IVPB ×2 (09:05→21:11)
[2018-11-28] MEDS: VALPROATE INJ 750 MG in SOD CHLORIDE 0.9% 50 ML IVPB ×2 (09:05→22:25)
[2018-11-28] MEDS: CHOLECALCIFEROL 1,000 UNIT TAB PO (09:06)
[2018-11-28] MEDS: MULTIVIT/CA CARB/B CMPLX/FA TAB PO (09:06)
[2018-11-28] MEDS: FAMOTIDINE 20 MG INJ IV (09:06)
[2018-11-28] MEDS: ASPIRIN (EC) 81 MG TAB PO (09:06)
[2018-11-28 13:02] LABS: VALPROATE 32 ug/ml (50-100)
[2018-11-28] MEDS: VALPROATE INJ 500 MG in SOD CHLORIDE 0.9% 50 ML IVPB (16:52)
[2018-11-28 19:57] LABS: PTH CALCIUM 6.8 mg/dL (8.6-10.3)
[2018-11-29] MEDS: CEFEPIME 1GM/50 ML (PMX) 50 ML IVPB (00:35)
[2018-11-29] MEDS: ALBUTEROL 0.083% (NEB) 2.5 MG/3 ML AMP HHN ×5 (01:24→20:26)
[2018-11-29] MEDS: ACCU-CHEK XX (02:00)
[2018-11-29] MEDS: hydrALAzine 20 MG INJ IV (02:14)
[2018-11-29 05:17] LABS: ADD MAN DIFF? NO
[2018-11-29] MEDS: VALPROATE INJ 750 MG in SOD CHLORIDE 0.9% 50 ML IVPB ×3 (05:19→22:18)
[2018-11-29 05:24] LABS: WHITE BLOOD COUNT 7.2 10^3/ul (4.8-10.8)
[2018-11-29 05:24] LABS: BASOPHIL # 0.1 10^3/ul (0.0-0.1); BASOPHILS % 0.8 % (0.0-2.0); EOSINOPHILS # 0.2 10^3/ul (0.0-0.5); EOSINOPHILS % 3.3 % (0.0-7.0); HEMATOCRIT 33.1 % (42.0-52.0); HEMOGLOBIN 10.9 g/dl (14.0-18.0); LYMPHOCYTES # 1.2 10^3/ul (0.8-2.9); LYMPHOCYTES % 15.9 % (15.0-51.0); MEAN CORPUSCULAR HEMOGLOBIN 28.7 pg (29.0-33.0); MEAN CORPUSCULAR HGB CONC 32.9 g/dl (32.0-37.0); MEAN CORPUSCULAR VOLUME 87.1 fl (82.0-101.0); MEAN PLATELET VOLUME 11.1 fl (7.4-10.4); MONOCYTE # 0.7 10^3/ul (0.3-0.9); NEUTROPHIL # 4.9 10^3/ul (1.6-7.5); NEUTROPHILS % 68.2 % (39.0-77.0); PLATELET COUNT 272 10^3/UL (140-415); RED CELL DISTRIBUTION WIDTH 12.7 % (11.5-14.5)
[2018-11-29 05:53] LABS: MAGNESIUM 1.9 mg/dl (1.7-2.5)
[2018-11-29 05:59] LABS: VALPROATE 36 ug/ml (50-100)
[2018-11-29] MEDS: metroNIDAZOLE 500 MG/NS (PMX) 100 ML IVPB ×3 (06:18→22:12)
[2018-11-29] MEDS: HEPARIN 5,000 UNIT/1 ML VIAL SC ×3 (06:28→22:15)
[2018-11-29 07:22] LABS: ANION GAP 9 (5-13); BLOOD UREA NITROGEN 32 mg/dl (7-20); CALCIUM 7.7 mg/dl (8.4-10.2); CARBON DIOXIDE 23 mmol/L (21-31); CHLORIDE 112 mmol/L (97-110); CREATININE 7.86 mg/dl (0.61-1.24); Estimated GFR 7 mL/min (>60); GLUCOSE 142 mg/dl (70-220); POTASSIUM 4.2 mmol/L (3.5-5.1); SODIUM 144 mmol/L (135-144)
[2018-11-29] MEDS: INSULIN ASPART [NOVOLOG] 3 ML PEN SC ×4 (08:00→21:00)
[2018-11-29] MEDS: LEVETIRACETAM 500 MG (PMX) 100 ML IVPB ×2 (09:40→22:07)
[2018-11-29] MEDS: FAMOTIDINE 20 MG INJ IV (09:42)
[2018-11-29] MEDS: SEVELAMER CARBONATE 800 MG TABLET PO ×3 (09:43→17:29)
[2018-11-29] MEDS: CHOLECALCIFEROL 1,000 UNIT TAB PO (09:43)
[2018-11-29] MEDS: MULTIVIT/CA CARB/B CMPLX/FA TAB PO (09:43)
[2018-11-29] MEDS: ASPIRIN (EC) 81 MG TAB PO (09:43)
[2018-11-29] MEDS: ENOXAPARIN 30 MG/0.3 ML SYG SC (09:51)
[2018-11-29 10:31] LABS: PTH INTACT 575 pg/mL (14-64)
[2018-11-29] MEDS: HEPARIN 1000 UNITS/ML 10 ML INJ CATHETER (13:19)
[2018-11-29] MEDS: EPOETIN ALFA-EPBX (ESRD) 10,000 UNIT/ML VIAL SC (17:29)
[2018-11-30] MEDS: CEFEPIME 1GM/50 ML (PMX) 50 ML IVPB (00:29)
[2018-11-30] MEDS: ALBUTEROL 0.083% (NEB) 2.5 MG/3 ML AMP HHN ×4 (01:47→21:07)
[2018-11-30] MEDS: ACCU-CHEK XX (01:58)
[2018-11-30] MEDS: VALPROATE INJ 750 MG in SOD CHLORIDE 0.9% 50 ML IVPB ×2 (05:37→14:48)
[2018-11-30] MEDS: metroNIDAZOLE 500 MG/NS (PMX) 100 ML IVPB ×3 (05:37→22:24)
[2018-11-30] MEDS: HEPARIN 5,000 UNIT/1 ML VIAL SC ×3 (05:41→22:31)
[2018-11-30 05:53] LABS: ADD MAN DIFF? NO
[2018-11-30 05:57] LABS: BASOPHIL # 0.1 10^3/ul (0.0-0.1); BASOPHILS % 0.8 % (0.0-2.0); EOSINOPHILS # 0.4 10^3/ul (0.0-0.5); EOSINOPHILS % 4.4 % (0.0-7.0); HEMATOCRIT 34.4 % (42.0-52.0); HEMOGLOBIN 11.2 g/dl (14.0-18.0); LYMPHOCYTES # 1.6 10^3/ul (0.8-2.9); LYMPHOCYTES % 19.1 % (15.0-51.0); MEAN CORPUSCULAR HEMOGLOBIN 28.5 pg (29.0-33.0); MEAN CORPUSCULAR HGB CONC 32.6 g/dl (32.0-37.0); MEAN CORPUSCULAR VOLUME 87.5 fl (82.0-101.0); MEAN PLATELET VOLUME 11.3 fl (7.4-10.4); MONOCYTE # 0.8 10^3/ul (0.3-0.9); MONOCYTES % 9.4 % (0.0-11.0); NEUTROPHIL # 5.3 10^3/ul (1.6-7.5); NEUTROPHILS % 63.9 % (39.0-77.0); PLATELET COUNT 295 10^3/UL (140-415); RED BLOOD COUNT 3.93 10^6/ul (4.70-6.10); RED CELL DISTRIBUTION WIDTH 12.6 % (11.5-14.5)
[2018-11-30 05:57] LABS: WHITE BLOOD COUNT 8.4 10^3/ul (4.8-10.8)
[2018-11-30 06:28] LABS: VALPROATE 48 ug/ml (50-100)
[2018-11-30 06:29] LABS: ANION GAP 7 (5-13); BLOOD UREA NITROGEN 19 mg/dl (7-20); CALCIUM 8.1 mg/dl (8.4-10.2); CARBON DIOXIDE 28 mmol/L (21-31); CHLORIDE 107 mmol/L (97-110); CREATININE 5.85 mg/dl (0.61-1.24); Estimated GFR 10 mL/min (>60); GLUCOSE 115 mg/dl (70-220); POTASSIUM 3.9 mmol/L (3.5-5.1); SODIUM 142 mmol/L (135-144)
[2018-11-30 06:35] LABS: MAGNESIUM 1.8 mg/dl (1.7-2.5)
[2018-11-30 06:35] LABS: PHOSPHORUS 4.3 mg/dl (2.5-4.9)
[2018-11-30] MEDS: INSULIN ASPART [NOVOLOG] 3 ML PEN SC ×4 (08:00→20:18)
[2018-11-30] MEDS: SEVELAMER CARBONATE 800 MG TABLET PO ×3 (08:53→17:57)
[2018-11-30] MEDS: MULTIVIT/CA CARB/B CMPLX/FA TAB PO (08:53)
[2018-11-30] MEDS: ASPIRIN (EC) 81 MG TAB PO (08:53)
[2018-11-30] MEDS: CHOLECALCIFEROL 1,000 UNIT TAB PO (08:53)
[2018-11-30] MEDS: FAMOTIDINE 20 MG INJ IV (08:54)
[2018-11-30] MEDS: LEVETIRACETAM 500 MG (PMX) 100 ML IVPB ×2 (08:58→20:15)
[2018-11-30 10:48] LABS: PROCALCITONIN 5.38 ng/mL (0.00-0.10)
[2018-11-30] MEDS: DIVALPROEX (EC) 250 MG TAB PO (21:31)
[2018-12-01] MEDS: CEFEPIME 1GM/50 ML (PMX) 50 ML IVPB (00:36)
[2018-12-01] MEDS: ACCU-CHEK XX (02:00)
[2018-12-01] MEDS: ALBUTEROL 0.083% (NEB) 2.5 MG/3 ML AMP HHN ×4 (02:00→20:35)
[2018-12-01] MEDS: metroNIDAZOLE 500 MG/NS (PMX) 100 ML IVPB ×3 (05:43→21:23)
[2018-12-01] MEDS: HEPARIN 5,000 UNIT/1 ML VIAL SC ×3 (05:46→21:28)
[2018-12-01 06:05] LABS: VALPROATE 45 ug/ml (50-100)
[2018-12-01 06:05] LABS: ANION GAP 9 (5-13); BLOOD UREA NITROGEN 27 mg/dl (7-20); CALCIUM 8.7 mg/dl (8.4-10.2); CARBON DIOXIDE 26 mmol/L (21-31); CHLORIDE 108 mmol/L (97-110); CREATININE 7.28 mg/dl (0.61-1.24); Estimated GFR 8 mL/min (>60); GLUCOSE 148 mg/dl (70-220); POTASSIUM 4.4 mmol/L (3.5-5.1); SODIUM 143 mmol/L (135-144)
[2018-12-01 06:13] LABS: PHENYTOIN (DILANTIN) < 3.0 ug/ml (10.0-20.0)
[2018-12-01] MEDS: CHOLECALCIFEROL 1,000 UNIT TAB PO (09:09)
[2018-12-01] MEDS: MULTIVIT/CA CARB/B CMPLX/FA TAB PO (09:09)
[2018-12-01] MEDS: SEVELAMER CARBONATE 800 MG TABLET PO ×3 (09:09→18:52)
[2018-12-01] MEDS: ASPIRIN (EC) 81 MG TAB PO (09:10)
[2018-12-01] MEDS: LEVETIRACETAM 500 MG TAB PO (09:10)
[2018-12-01] MEDS: FAMOTIDINE 20 MG INJ IV (09:10)
[2018-12-01] MEDS: DIVALPROEX (EC) 250 MG TAB PO ×2 (09:10→13:15)
[2018-12-01] MEDS: INSULIN ASPART [NOVOLOG] 3 ML PEN SC ×4 (09:23→21:00)
[2018-12-01] MEDS: HEPARIN 1000 UNITS/ML 10 ML INJ CATHETER (18:35)
[2018-12-01] MEDS: VALPROATE INJ 750 MG in SOD CHLORIDE 0.9% 50 ML IVPB (18:57)
[2018-12-01] MEDS: VALPROIC ACID LIQUID CUP 250 MG/5 ML CUP PO (23:37)
[2018-12-02] MEDS: CEFEPIME 1GM/50 ML (PMX) 50 ML IVPB (00:28)
[2018-12-02] MEDS: ACCU-CHEK XX (02:00)
[2018-12-02] MEDS: ALBUTEROL 0.083% (NEB) 2.5 MG/3 ML AMP HHN ×4 (02:17→19:53)
[2018-12-02] MEDS: metroNIDAZOLE 500 MG/NS (PMX) 100 ML IVPB ×3 (05:36→21:36)
[2018-12-02] MEDS: HEPARIN 5,000 UNIT/1 ML VIAL SC ×3 (05:44→21:44)
[2018-12-02 05:52] LABS: VALPROATE 69 ug/ml (50-100)
[2018-12-02 06:06] LABS: ANION GAP 8 (5-13); BLOOD UREA NITROGEN 17 mg/dl (7-20); CALCIUM 8.1 mg/dl (8.4-10.2); CARBON DIOXIDE 29 mmol/L (21-31); CHLORIDE 104 mmol/L (97-110); CREATININE 4.88 mg/dl (0.61-1.24); Estimated GFR 12 mL/min (>60); GLUCOSE 114 mg/dl (70-220); POTASSIUM 3.8 mmol/L (3.5-5.1); SODIUM 141 mmol/L (135-144)
[2018-12-02] MEDS: INSULIN ASPART [NOVOLOG] 3 ML PEN SC ×4 (08:00→21:00)
[2018-12-02] MEDS: SEVELAMER CARBONATE 800 MG TABLET PO ×3 (08:11→17:47)
[2018-12-02] MEDS: CHOLECALCIFEROL 1,000 UNIT TAB PO (08:11)
[2018-12-02] MEDS: MULTIVIT/CA CARB/B CMPLX/FA TAB PO (08:11)
[2018-12-02] MEDS: ASPIRIN (EC) 81 MG TAB PO (08:11)
[2018-12-02] MEDS: VALPROIC ACID LIQUID CUP 250 MG/5 ML CUP PO ×3 (08:11→21:36)
[2018-12-02] MEDS: FAMOTIDINE 20 MG TAB PO (08:19)
[2018-12-02] MEDS ORDERED: GLUCAGON 1 MG INJ IM (16:30)
[2018-12-02] MEDS ORDERED: GLUCOSE GEL 15 GRAM TUBE BUCCAL (16:30)
[2018-12-02] MEDS ORDERED: DEXTROSE 50% 50 ML SYRINGE IV ×2 (16:30)
[2018-12-02] MEDS ORDERED: GLUCOSE GEL 15 GRAM TUBE PO ×2 (16:30)
[2018-12-02] MEDS: ERYTHROMYCIN 1 GM OPH OINT BOTH EYES ×2 (17:47→21:55)
[2018-12-03] MEDS: CEFEPIME 1GM/50 ML (PMX) 50 ML IVPB (00:23)
[2018-12-03] MEDS: ONDANSETRON 4 MG INJ IV ×2 (01:34→13:40)
[2018-12-03] MEDS: ACCU-CHEK XX (02:00)
[2018-12-03] MEDS: ALBUTEROL 0.083% (NEB) 2.5 MG/3 ML AMP HHN ×5 (02:00→19:32)
[2018-12-03] MEDS: hydrALAzine 20 MG INJ IV (02:49)
[2018-12-03 04:58] LABS: ADD MAN DIFF? NO
[2018-12-03 05:05] LABS: BASOPHIL # 0.1 10^3/ul (0.0-0.1); BASOPHILS % 0.6 % (0.0-2.0); EOSINOPHILS # 0.2 10^3/ul (0.0-0.5); EOSINOPHILS % 1.9 % (0.0-7.0); HEMATOCRIT 37.1 % (42.0-52.0); HEMOGLOBIN 12.2 g/dl (14.0-18.0); LYMPHOCYTES # 0.8 10^3/ul (0.8-2.9); LYMPHOCYTES % 8.6 % (15.0-51.0); MEAN CORPUSCULAR HEMOGLOBIN 28.8 pg (29.0-33.0); MEAN CORPUSCULAR HGB CONC 32.9 g/dl (32.0-37.0); MEAN CORPUSCULAR VOLUME 87.7 fl (82.0-101.0); MEAN PLATELET VOLUME 10.6 fl (7.4-10.4); MONOCYTE # 0.9 10^3/ul (0.3-0.9); MONOCYTES % 9.1 % (0.0-11.0); NEUTROPHIL # 7.5 10^3/ul (1.6-7.5); NEUTROPHILS % 76.9 % (39.0-77.0); PLATELET COUNT 351 10^3/UL (140-415); RED BLOOD COUNT 4.23 10^6/ul (4.70-6.10); RED CELL DISTRIBUTION WIDTH 13.2 % (11.5-14.5)
[2018-12-03 05:05] LABS: WHITE BLOOD COUNT 9.8 10^3/ul (4.8-10.8)
[2018-12-03 05:27] LABS: ANION GAP 13 (5-13); BLOOD UREA NITROGEN 30 mg/dl (7-20); CALCIUM 8.1 mg/dl (8.4-10.2); CARBON DIOXIDE 27 mmol/L (21-31); CHLORIDE 105 mmol/L (97-110); CREATININE 7.26 mg/dl (0.61-1.24); Estimated GFR 8 mL/min (>60); GLUCOSE 167 mg/dl (70-220); SODIUM 145 mmol/L (135-144)
[2018-12-03 05:30] LABS: VALPROATE 61 ug/ml (50-100)
[2018-12-03 05:34] LABS: PHOSPHORUS 5.7 mg/dl (2.5-4.9)
[2018-12-03 05:34] LABS: MAGNESIUM 1.9 mg/dl (1.7-2.5)
[2018-12-03] MEDS: HEPARIN 5,000 UNIT/1 ML VIAL SC ×3 (05:49→21:36)
[2018-12-03] MEDS: metroNIDAZOLE 500 MG/NS (PMX) 100 ML IVPB ×3 (05:49→23:50)
[2018-12-03] MEDS: INSULIN ASPART [NOVOLOG] 3 ML PEN SC ×4 (08:00→21:00)
[2018-12-03] MEDS: VALPROIC ACID LIQUID CUP 250 MG/5 ML CUP PO ×3 (08:50→21:28)
[2018-12-03] MEDS: MULTIVIT/CA CARB/B CMPLX/FA TAB PO (08:51)
[2018-12-03] MEDS: FAMOTIDINE 20 MG TAB PO (08:51)
[2018-12-03] MEDS: ASPIRIN (EC) 81 MG TAB PO (08:51)
[2018-12-03] MEDS: SEVELAMER CARBONATE 800 MG TABLET PO ×3 (08:51→18:01)
[2018-12-03] MEDS: CHOLECALCIFEROL 1,000 UNIT TAB PO (08:51)
[2018-12-03] MEDS: ERYTHROMYCIN 1 GM OPH OINT BOTH EYES ×4 (08:52→21:28)
[2018-12-03] MEDS: HEPARIN 1000 UNITS/ML 10 ML INJ CATHETER (17:08)
[2018-12-04] MEDS: CEFEPIME 1GM/50 ML (PMX) 50 ML IVPB (00:43)
[2018-12-04] MEDS: ALBUTEROL 0.083% (NEB) 2.5 MG/3 ML AMP HHN ×4 (01:08→20:48)
[2018-12-04] MEDS: ACCU-CHEK XX (02:00)
[2018-12-04] MEDS: metroNIDAZOLE 500 MG/NS (PMX) 100 ML IVPB ×3 (05:19→21:40)
[2018-12-04] MEDS: HEPARIN 5,000 UNIT/1 ML VIAL SC ×3 (05:39→21:46)
[2018-12-04 07:36] LABS: ADD MAN DIFF? NO
[2018-12-04 07:42] LABS: BASOPHILS % 0.5 % (0.0-2.0); EOSINOPHILS # 0.2 10^3/ul (0.0-0.5); EOSINOPHILS % 2.8 % (0.0-7.0); HEMATOCRIT 37.9 % (42.0-52.0); HEMOGLOBIN 12.3 g/dl (14.0-18.0); LYMPHOCYTES # 1.4 10^3/ul (0.8-2.9); LYMPHOCYTES % 18.4 % (15.0-51.0); MEAN CORPUSCULAR HEMOGLOBIN 28.8 pg (29.0-33.0); MEAN CORPUSCULAR HGB CONC 32.5 g/dl (32.0-37.0); MEAN CORPUSCULAR VOLUME 88.8 fl (82.0-101.0); MEAN PLATELET VOLUME 10.2 fl (7.4-10.4); MONOCYTE # 1.2 10^3/ul (0.3-0.9); MONOCYTES % 15.3 % (0.0-11.0); NEUTROPHIL # 4.7 10^3/ul (1.6-7.5); NEUTROPHILS % 61.1 % (39.0-77.0); PLATELET COUNT 323 10^3/UL (140-415); RED BLOOD COUNT 4.27 10^6/ul (4.70-6.10); RED CELL DISTRIBUTION WIDTH 13.9 % (11.5-14.5)
[2018-12-04 07:42] LABS: WHITE BLOOD COUNT 7.8 10^3/ul (4.8-10.8)
[2018-12-04] MEDS: INSULIN ASPART [NOVOLOG] 3 ML PEN SC ×4 (08:00→21:47)
[2018-12-04 08:05] LABS: ANION GAP 9 (5-13); BLOOD UREA NITROGEN 19 mg/dl (7-20); CALCIUM 8.3 mg/dl (8.4-10.2); CARBON DIOXIDE 29 mmol/L (21-31); CHLORIDE 103 mmol/L (97-110); CREATININE 5.67 mg/dl (0.61-1.24); Estimated GFR 10 mL/min (>60); GLUCOSE 107 mg/dl (70-220); MAGNESIUM 1.9 mg/dl (1.7-2.5); PHOSPHORUS 5.4 mg/dl (2.5-4.9); SODIUM 141 mmol/L (135-144)
[2018-12-04 08:13] LABS: POTASSIUM 4.1 mmol/L (3.5-5.1)
[2018-12-04] MEDS: ASPIRIN (EC) 81 MG TAB PO (08:57)
[2018-12-04] MEDS: FAMOTIDINE 20 MG TAB PO (08:57)
[2018-12-04] MEDS: ERYTHROMYCIN 1 GM OPH OINT BOTH EYES ×4 (08:57→21:39)
[2018-12-04] MEDS: VALPROIC ACID LIQUID CUP 250 MG/5 ML CUP PO ×3 (08:58→21:40)
[2018-12-04] MEDS: MULTIVIT/CA CARB/B CMPLX/FA TAB PO (08:58)
[2018-12-04] MEDS: SEVELAMER CARBONATE 800 MG TABLET PO ×3 (08:58→17:27)
[2018-12-04] MEDS: CHOLECALCIFEROL 1,000 UNIT TAB PO (08:58)
[2018-12-04] MEDS: ONDANSETRON 4 MG INJ IV (13:32)
[2018-12-05] MEDS: CEFEPIME 1GM/50 ML (PMX) 50 ML IVPB (01:02)
[2018-12-05] MEDS: ALBUTEROL 0.083% (NEB) 2.5 MG/3 ML AMP HHN ×4 (01:47→19:57)
[2018-12-05] MEDS: ACCU-CHEK XX (02:00)
[2018-12-05] MEDS: metroNIDAZOLE 500 MG/NS (PMX) 100 ML IVPB (05:35)
[2018-12-05] MEDS: HEPARIN 5,000 UNIT/1 ML VIAL SC ×3 (05:41→22:08)
[2018-12-05 05:48] LABS: ADD MAN DIFF? NO
[2018-12-05 05:54] LABS: WHITE BLOOD COUNT 9.9 10^3/ul (4.8-10.8)
[2018-12-05 05:54] LABS: BASOPHIL # 0.1 10^3/ul (0.0-0.1); BASOPHILS % 0.5 % (0.0-2.0); EOSINOPHILS # 0.3 10^3/ul (0.0-0.5); EOSINOPHILS % 2.8 % (0.0-7.0); HEMATOCRIT 35.2 % (42.0-52.0); HEMOGLOBIN 11.4 g/dl (14.0-18.0); LYMPHOCYTES # 1.6 10^3/ul (0.8-2.9); LYMPHOCYTES % 15.9 % (15.0-51.0); MEAN CORPUSCULAR HEMOGLOBIN 29.2 pg (29.0-33.0); MEAN CORPUSCULAR HGB CONC 32.4 g/dl (32.0-37.0); MEAN PLATELET VOLUME 10.4 fl (7.4-10.4); MONOCYTE # 1.3 10^3/ul (0.3-0.9); MONOCYTES % 13.1 % (0.0-11.0); NEUTROPHIL # 6.6 10^3/ul (1.6-7.5); NEUTROPHILS % 66.3 % (39.0-77.0); PLATELET COUNT 328 10^3/UL (140-415); RED BLOOD COUNT 3.91 10^6/ul (4.70-6.10); RED CELL DISTRIBUTION WIDTH 13.6 % (11.5-14.5)
[2018-12-05 06:12] LABS: ANION GAP 11 (5-13); BLOOD UREA NITROGEN 32 mg/dl (7-20); CALCIUM 7.8 mg/dl (8.4-10.2); CARBON DIOXIDE 27 mmol/L (21-31); CHLORIDE 103 mmol/L (97-110); CREATININE 7.87 mg/dl (0.61-1.24); Estimated GFR 7 mL/min (>60); GLUCOSE 86 mg/dl (70-220); PHOSPHORUS 7.1 mg/dl (2.5-4.9); POTASSIUM 4.3 mmol/L (3.5-5.1); SODIUM 141 mmol/L (135-144)
[2018-12-05] MEDS: INSULIN ASPART [NOVOLOG] 3 ML PEN SC ×4 (07:59→21:00)
[2018-12-05] MEDS: FAMOTIDINE 20 MG TAB PO (08:47)
[2018-12-05] MEDS: MULTIVIT/CA CARB/B CMPLX/FA TAB PO (08:47)
[2018-12-05] MEDS: VALPROIC ACID LIQUID CUP 250 MG/5 ML CUP PO ×3 (08:47→21:57)
[2018-12-05] MEDS: CHOLECALCIFEROL 1,000 UNIT TAB PO (08:47)
[2018-12-05] MEDS: ASPIRIN (EC) 81 MG TAB PO (08:47)
[2018-12-05] MEDS: ERYTHROMYCIN 1 GM OPH OINT BOTH EYES ×4 (08:48→21:58)
[2018-12-05] MEDS: SEVELAMER CARBONATE 800 MG TABLET PO ×2 (12:00→17:44)
[2018-12-05] MEDS: HEPARIN 1000 UNITS/ML 10 ML INJ CATHETER (13:05)
[2018-12-06] MEDS: ACCU-CHEK XX (01:02)
[2018-12-06] MEDS: ALBUTEROL 0.083% (NEB) 2.5 MG/3 ML AMP HHN ×2 (01:49→09:19)
[2018-12-06 05:31] LABS: ADD MAN DIFF? NO
[2018-12-06 05:32] LABS: WHITE BLOOD COUNT 9.5 10^3/ul (4.8-10.8)
[2018-12-06 05:33] LABS: BASOPHIL # 0.1 10^3/ul (0.0-0.1); BASOPHILS % 0.6 % (0.0-2.0); EOSINOPHILS # 0.3 10^3/ul (0.0-0.5); EOSINOPHILS % 3.6 % (0.0-7.0); HEMATOCRIT 35.7 % (42.0-52.0); HEMOGLOBIN 11.5 g/dl (14.0-18.0); LYMPHOCYTES # 1.5 10^3/ul (0.8-2.9); LYMPHOCYTES % 15.8 % (15.0-51.0); MEAN CORPUSCULAR HGB CONC 32.2 g/dl (32.0-37.0); MEAN CORPUSCULAR VOLUME 89.9 fl (82.0-101.0); MEAN PLATELET VOLUME 10.5 fl (7.4-10.4); MONOCYTE # 1.2 10^3/ul (0.3-0.9); MONOCYTES % 13.1 % (0.0-11.0); NEUTROPHIL # 6.2 10^3/ul (1.6-7.5); NEUTROPHILS % 65.4 % (39.0-77.0); PLATELET COUNT 320 10^3/UL (140-415); RED BLOOD COUNT 3.97 10^6/ul (4.70-6.10); RED CELL DISTRIBUTION WIDTH 13.7 % (11.5-14.5)
[2018-12-06] MEDS: HEPARIN 5,000 UNIT/1 ML VIAL SC ×3 (05:46→21:21)
[2018-12-06 05:57] LABS: ANION GAP 11 (5-13); BLOOD UREA NITROGEN 27 mg/dl (7-20); CALCIUM 7.9 mg/dl (8.4-10.2); CARBON DIOXIDE 26 mmol/L (21-31); CHLORIDE 103 mmol/L (97-110); CREATININE 6.63 mg/dl (0.61-1.24); Estimated GFR 9 mL/min (>60); GLUCOSE 117 mg/dl (70-220); PHOSPHORUS 5.7 mg/dl (2.5-4.9); POTASSIUM 4.2 mmol/L (3.5-5.1); SODIUM 140 mmol/L (135-144)
[2018-12-06] MEDS: INSULIN ASPART [NOVOLOG] 3 ML PEN SC ×4 (08:00→21:00)
[2018-12-06] MEDS: CHOLECALCIFEROL 1,000 UNIT TAB PO (09:10)
[2018-12-06] MEDS: SEVELAMER CARBONATE 2.4 GM PKT PO ×3 (09:10→17:25)
[2018-12-06] MEDS: MULTIVIT/CA CARB/B CMPLX/FA TAB PO (09:10)
[2018-12-06] MEDS: ASPIRIN 81 MG TAB PO (09:10)
[2018-12-06] MEDS: FAMOTIDINE 20 MG TAB PO (09:10)
[2018-12-06] MEDS: VALPROIC ACID LIQUID CUP 250 MG/5 ML CUP PO ×3 (09:11→21:18)
[2018-12-06] MEDS: ERYTHROMYCIN 1 GM OPH OINT BOTH EYES ×4 (09:40→21:36)
[2018-12-06] MEDS: ALBUTEROL/IPRATROPIUM (NEB) 3 ML AMP HHN (14:38)
[2018-12-06 17:11] LABS: VALPROATE 70 ug/ml (50-100)
[2018-12-07] MEDS: ACCU-CHEK XX (02:00)
[2018-12-07 05:23] LABS: ADD MAN DIFF? NO
[2018-12-07 05:31] LABS: BASOPHIL # 0.1 10^3/ul (0.0-0.1); BASOPHILS % 0.7 % (0.0-2.0); EOSINOPHILS # 0.3 10^3/ul (0.0-0.5); EOSINOPHILS % 3.4 % (0.0-7.0); HEMATOCRIT 36.5 % (42.0-52.0); HEMOGLOBIN 11.9 g/dl (14.0-18.0); LYMPHOCYTES # 1.4 10^3/ul (0.8-2.9); LYMPHOCYTES % 15.5 % (15.0-51.0); MEAN CORPUSCULAR HEMOGLOBIN 28.8 pg (29.0-33.0); MEAN CORPUSCULAR HGB CONC 32.6 g/dl (32.0-37.0); MEAN CORPUSCULAR VOLUME 88.4 fl (82.0-101.0); MEAN PLATELET VOLUME 10.3 fl (7.4-10.4); MONOCYTE # 0.9 10^3/ul (0.3-0.9); MONOCYTES % 9.8 % (0.0-11.0); NEUTROPHIL # 6.1 10^3/ul (1.6-7.5); NEUTROPHILS % 69.2 % (39.0-77.0); PLATELET COUNT 339 10^3/UL (140-415); RED BLOOD COUNT 4.13 10^6/ul (4.70-6.10); RED CELL DISTRIBUTION WIDTH 14.1 % (11.5-14.5)
[2018-12-07 05:31] LABS: WHITE BLOOD COUNT 8.9 10^3/ul (4.8-10.8)
[2018-12-07 05:53] LABS: ANION GAP 10 (5-13); BLOOD UREA NITROGEN 39 mg/dl (7-20); CALCIUM 7.9 mg/dl (8.4-10.2); CARBON DIOXIDE 27 mmol/L (21-31); CHLORIDE 104 mmol/L (97-110); GLUCOSE 122 mg/dl (70-220); MAGNESIUM 2.2 mg/dl (1.7-2.5); PHOSPHORUS 6.6 mg/dl (2.5-4.9); POTASSIUM 4.4 mmol/L (3.5-5.1); SODIUM 141 mmol/L (135-144)
[2018-12-07 06:00] LABS: CREATININE 8.18 mg/dl (0.61-1.24); Estimated GFR 7 mL/min (>60)
[2018-12-07] MEDS: HEPARIN 5,000 UNIT/1 ML VIAL SC ×3 (06:17→20:50)
[2018-12-07] MEDS: INSULIN ASPART [NOVOLOG] 3 ML PEN SC ×4 (08:00→20:50)
[2018-12-07] MEDS: SEVELAMER CARBONATE 2.4 GM PKT PO ×3 (09:10→17:46)
[2018-12-07] MEDS: FAMOTIDINE 20 MG TAB PO (09:10)
[2018-12-07] MEDS: ERYTHROMYCIN 1 GM OPH OINT BOTH EYES ×4 (09:10→20:48)
[2018-12-07] MEDS: MULTIVIT/CA CARB/B CMPLX/FA TAB PO (09:10)
[2018-12-07] MEDS: VALPROIC ACID LIQUID CUP 250 MG/5 ML CUP PO ×3 (09:10→20:49)
[2018-12-07] MEDS: CLOPIDOGREL 75 MG TAB PO (09:10)
[2018-12-07] MEDS: CHOLECALCIFEROL 1,000 UNIT TAB PO (09:15)
[2018-12-07] MEDS: HEPARIN 1000 UNITS/ML 10 ML INJ CATHETER (12:24)
[2018-12-08] MEDS: ACCU-CHEK XX (01:57)
[2018-12-08] MEDS: HEPARIN 5,000 UNIT/1 ML VIAL SC ×3 (05:35→21:09)
[2018-12-08 05:41] LABS: ADD MAN DIFF? NO
[2018-12-08 05:42] LABS: BASOPHIL # 0.1 10^3/ul (0.0-0.1); BASOPHILS % 0.9 % (0.0-2.0); EOSINOPHILS # 0.3 10^3/ul (0.0-0.5); HEMATOCRIT 39.2 % (42.0-52.0); HEMOGLOBIN 12.9 g/dl (14.0-18.0); LYMPHOCYTES # 1.8 10^3/ul (0.8-2.9); LYMPHOCYTES % 19.6 % (15.0-51.0); MEAN CORPUSCULAR HEMOGLOBIN 29.1 pg (29.0-33.0); MEAN CORPUSCULAR HGB CONC 32.9 g/dl (32.0-37.0); MEAN CORPUSCULAR VOLUME 88.5 fl (82.0-101.0); MEAN PLATELET VOLUME 9.8 fl (7.4-10.4); MONOCYTE # 0.9 10^3/ul (0.3-0.9); MONOCYTES % 9.7 % (0.0-11.0); NEUTROPHIL # 6.1 10^3/ul (1.6-7.5); NEUTROPHILS % 65.4 % (39.0-77.0); PLATELET COUNT 356 10^3/UL (140-415); RED BLOOD COUNT 4.43 10^6/ul (4.70-6.10)
[2018-12-08 05:42] LABS: WHITE BLOOD COUNT 9.3 10^3/ul (4.8-10.8)
[2018-12-08 06:28] LABS: ANION GAP 13 (5-13); BLOOD UREA NITROGEN 30 mg/dl (7-20); CALCIUM 8.5 mg/dl (8.4-10.2); CARBON DIOXIDE 25 mmol/L (21-31); CHLORIDE 101 mmol/L (97-110); CREATININE 6.64 mg/dl (0.61-1.24); Estimated GFR 9 mL/min (>60); GLUCOSE 97 mg/dl (70-220); MAGNESIUM 2.1 mg/dl (1.7-2.5); PHOSPHORUS 5.3 mg/dl (2.5-4.9); POTASSIUM 4.3 mmol/L (3.5-5.1); SODIUM 139 mmol/L (135-144)
[2018-12-08] MEDS: INSULIN ASPART [NOVOLOG] 3 ML PEN SC ×4 (08:00→20:37)
[2018-12-08] MEDS: CLOPIDOGREL 75 MG TAB PO (08:20)
[2018-12-08] MEDS: CHOLECALCIFEROL 1,000 UNIT TAB PO (08:20)
[2018-12-08] MEDS: FAMOTIDINE 20 MG TAB PO (08:20)
[2018-12-08] MEDS: VALPROIC ACID LIQUID CUP 250 MG/5 ML CUP PO ×3 (08:20→20:36)
[2018-12-08] MEDS: ERYTHROMYCIN 1 GM OPH OINT BOTH EYES ×4 (08:20→20:36)
[2018-12-08] MEDS: MULTIVIT/CA CARB/B CMPLX/FA TAB PO (08:20)
[2018-12-08] MEDS: SEVELAMER CARBONATE 2.4 GM PKT PO ×3 (08:20→17:46)
[2018-12-09] MEDS: ACCU-CHEK XX (02:00)
[2018-12-09 05:23] LABS: ADD MAN DIFF? NO
[2018-12-09 05:30] LABS: WHITE BLOOD COUNT 8.8 10^3/ul (4.8-10.8)
[2018-12-09 05:30] LABS: BASOPHIL # 0.1 10^3/ul (0.0-0.1); BASOPHILS % 0.7 % (0.0-2.0); EOSINOPHILS # 0.2 10^3/ul (0.0-0.5); EOSINOPHILS % 2.4 % (0.0-7.0); HEMOGLOBIN 12.6 g/dl (14.0-18.0); LYMPHOCYTES # 1.9 10^3/ul (0.8-2.9); LYMPHOCYTES % 21.7 % (15.0-51.0); MEAN CORPUSCULAR HEMOGLOBIN 28.9 pg (29.0-33.0); MEAN CORPUSCULAR HGB CONC 32.3 g/dl (32.0-37.0); MEAN CORPUSCULAR VOLUME 89.4 fl (82.0-101.0); MEAN PLATELET VOLUME 10.4 fl (7.4-10.4); MONOCYTE # 0.9 10^3/ul (0.3-0.9); MONOCYTES % 10.1 % (0.0-11.0); NEUTROPHIL # 5.6 10^3/ul (1.6-7.5); NEUTROPHILS % 63.6 % (39.0-77.0); PLATELET COUNT 363 10^3/UL (140-415); RED BLOOD COUNT 4.36 10^6/ul (4.70-6.10); RED CELL DISTRIBUTION WIDTH 14.1 % (11.5-14.5)
[2018-12-09] MEDS: HEPARIN 5,000 UNIT/1 ML VIAL SC ×2 (05:42→15:07)
[2018-12-09 05:43] LABS: ANION GAP 16 (5-13); BLOOD UREA NITROGEN 52 mg/dl (7-20); CALCIUM 8.6 mg/dl (8.4-10.2); CARBON DIOXIDE 23 mmol/L (21-31); CHLORIDE 101 mmol/L (97-110); GLUCOSE 83 mg/dl (70-220); MAGNESIUM 2.3 mg/dl (1.7-2.5); PHOSPHORUS 7.7 mg/dl (2.5-4.9); POTASSIUM 4.5 mmol/L (3.5-5.1); SODIUM 140 mmol/L (135-144)
[2018-12-09 05:54] LABS: Estimated GFR 6 mL/min (>60)
[2018-12-09 05:56] LABS: CREATININE 8.77 mg/dl (0.61-1.24)
[2018-12-09] MEDS: INSULIN ASPART [NOVOLOG] 3 ML PEN SC ×3 (08:00→17:38)
[2018-12-09] MEDS: FAMOTIDINE 20 MG TAB PO (08:40)
[2018-12-09] MEDS: ERYTHROMYCIN 1 GM OPH OINT BOTH EYES ×3 (08:40→17:00)
[2018-12-09] MEDS: SEVELAMER CARBONATE 2.4 GM PKT PO ×3 (08:40→17:38)
[2018-12-09] MEDS: VALPROIC ACID LIQUID CUP 250 MG/5 ML CUP PO ×2 (08:40→13:00)
[2018-12-09] MEDS: MULTIVIT/CA CARB/B CMPLX/FA TAB PO (08:41)
[2018-12-09] MEDS: CLOPIDOGREL 75 MG TAB PO (08:41)
[2018-12-09] MEDS: CHOLECALCIFEROL 1,000 UNIT TAB PO (08:41)
[2018-12-09] MEDS: HEPARIN 1000 UNITS/ML 10 ML INJ CATHETER (16:16)
== END 2018-12-09 20:52 | disposition home health service (06) | DRG 871 ==
LOC: 2NE 11-28 14:17 → E/R 17:00 → 6WM 18:36
PROC: 5A1D70Z Performance of Urinary Filtration, Intermittent, Less than 6 Hours Per Day (ICD-10-PCS; principal; 2018-11-27)
DX: A41.9 Sepsis, unspecified organism (principal); J69.0 Pneumonitis due to inhalation of food and vomit; N18.6 End stage renal disease; G92 Toxic encephalopathy; G93.49 Other encephalopathy; E87.2 Acidosis; I12.0 Hypertensive chronic kidney disease with stage 5 chronic kidney disease or end stage renal disease; D63.1 Anemia in chronic kidney disease; E11.22 Type 2 diabetes mellitus with diabetic chronic kidney disease; E11.40 Type 2 diabetes mellitus with diabetic neuropathy, unspecified; E87.70 Fluid overload, unspecified; E83.51 Hypocalcemia; E83.39 Other disorders of phosphorus metabolism; E87.6 Hypokalemia; E78.5 Hyperlipidemia, unspecified; F32.9 Major depressive disorder, single episode, unspecified; F43.10 Post-traumatic stress disorder, unspecified; I25.10 Atherosclerotic heart disease of native coronary artery without angina pectoris; G40.901 Epilepsy, unspecified, not intractable, with status epilepticus; I35.9 Nonrheumatic aortic valve disorder, unspecified; I16.0 Hypertensive urgency; R62.7 Adult failure to thrive; T42.6X5A Adverse effect of other antiepileptic and sedative-hypnotic drugs, initial encounter; Z86.73 Personal history of transient ischemic attack (TIA), and cerebral infarction without residual deficits; Z59.0 Homelessness; Z91.14 Patient's other noncompliance with medication regimen; Z98.61 Coronary angioplasty status; Z99.2 Dependence on renal dialysis; Z68.20 Body mass index [BMI] 20.0-20.9, adult; Z87.891 Personal history of nicotine dependence; Z79.4 Long term (current) use of insulin
CPT/HCPCS: 36415; 70450; 70551; 71045; 71250; 80048; 80053; 80061; 80164; 80185; 80202; 82140; 82330; 82607; 82652; 82746; 82962; 83036; 83605; 83690; 83735; 83921; 83970; 84100; 84145; 84443; 84484; 85025; 85610; 85730; 86704; 86709; 86803; 87040-91; 87081; 87340; 90935; 92526; 92610; 93005; 94640; 94664; 96374; 96375; 97110; 97161; 99285-25